=== PATIENT | female | born 1990 | race Caucasian/White ===

== ENCOUNTER 2017-10-20 21:10 | Emergency (ER) | payer BC, SELFPAY ==
[2017-10-20 21:59] LABS: Absolute Monocytes 0.8 K/uL (0.1-1.3); Absolute Neutrophil 6.2 K/uL (1.8-8.0); Basophils % 0.8 % (0-1.3); Eosinophils % 5.4 % (0-4.4); Hematocrit 39.4 % (36.0-45.0); Lymphocytes % 27.8 % (15.3-44.8); MCV 85.5 fL (80-100); MPV 8.9 fL (7.6-11.3); Monocytes % 7.9 % (3.3-12.3)
[2017-10-20 22:08] LABS: Urine Blood NEGATIVE (NEG); Urine Glucose NEGATIVE (NEG); Urine Protein NEGATIVE (NEG); Urine pH 8.5 (5.0-7.0)
[2017-10-20 22:12] LABS: Urine Amorphous Sediment 4+ /HPF (NONE SEEN); Urine Bacteria <20 /HPF (<20); Urine Culture Reflex Order NOT NEEDED; Urine RBC NONE SEEN /HPF (NONE SEEN)
[2017-10-20 22:18] LABS: ALT/SGPT 34 U/L (12-78); AST/SGOT 36 U/L (15-37); Alkaline Phosphatase 75 U/L (45-117); Amylase Level 39 U/L (25-115); BUN Blood Urea Nitrogen 18 mg/dL (7-18); Bicarbonate 25 mmol/L (21-32); Bilirubin Direct 0.1 mg/dL (0-0.2); Bilirubin Total 0.5 mg/dL (0.2-1.0); Glucose Level 92 mg/dL (74-106); Lipase 118 U/L (73-393); Potassium 3.6 mmol/L (3.5-5.1); Sodium Level 139 mmol/L (136-145)
[2017-10-20] MEDS ORDERED: MORPHINE 4 MG/ML SYR ONE (22:29)
[2017-10-20] MEDS ORDERED: KETOROLAC 30 MG/ML INJ ONE (22:29)
[2017-10-20] MEDS ORDERED: ONDANSETRON 4 MG/2 ML VIAL ONE (22:29)
[2017-10-20] MEDS ORDERED: NA CHLORIDE 0.9% 1,000 ML ONE (22:30)
--- NOTE | 2017-10-21 01:19 | ER ---
Nurse's Notes [facility] Name: Belle Boston Age: 27 yrs Sex: Female : 1990 Arrival Date: 10/20/2017 Time: 21:14 Bed 7 Private MD: Diagnosis: Acute abdominal pain;Biliary colic Presentation: 10/20 21:17 Presenting complaint: Patient states: Sudden onset severe epigastric burning and pain aj after eating tonight with nausea. Transition of care: patient was not received from another setting of care. Onset of symptoms was October 20, 2017. Risk Assessment: Do you want to hurt yourself or someone else? Patient reports no desire to harm self or others. Initial Sepsis Screen: Does the patient meet any 2 criteria? No. Patient's initial sepsis screen is negative. Does the patient have a suspected source of infection? No. Patient's initial sepsis screen is negative. Care prior to arrival: None. 21:17 Method Of Arrival: Ambulatory aj 21:17 Acuity: GUTIERREZ 2 aj Triage Assessment: 21:18 General: Appears in no apparent distress. uncomfortable, Behavior is calm, cooperative, aj appropriate for age. Pain: Complains of pain in epigastric area. Neuro: Level of Consciousness is awake, alert, obeys commands, Oriented to person, place, time, situation, Appropriate for age. Respiratory: Airway is patent Respiratory effort is even, unlabored, Respiratory pattern is regular, symmetrical. GI: Abdomen is flat, obese, Reports upper abdominal pain, epigastric pain. Derm: Skin is intact, is healthy with good turgor, Skin is. 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 - Social history:: Smoking status: Patient/guardian denies using tobacco. - Ebola Screening: : Patient negative for fever greater than or equal to 101.5 degrees Fahrenheit, and additional compatible Ebola Virus Disease symptoms Patient denies exposure to infectious person Patient denies travel to an Ebola-affected area in the 21 days before illness onset No symptoms or risks identified at this time. - Family history:: not pertinent. - Hospitalizations: : No recent hospitalization is reported. Screenin:15 Abuse screen: Denies threats or abuse. Nutritional screening: No deficits noted. jb4 Tuberculosis screening: No symptoms or risk factors identified. Fall Risk None identified. Assessment: 21:15 Reassessment: Patient appears in no apparent distress at this time. General: Appears in jb4 no apparent distress. uncomfortable, Behavior is calm, cooperative, appropriate for age. Pain: Complains of pain in abdomen Pain does not radiate. Pain currently is 8 out of 10 on a pain scale. at worst was 10 out of 10 on a pain scale. Quality of pain is described as burning, crampy, Pain began 2-3 days ago. Is intermittent. Neuro: Level of Consciousness is awake, alert, obeys commands, Oriented to person, place, time, situation. Cardiovascular: Heart tones S1 S2 Patient's skin is warm and dry. Respiratory: Airway is patent Respiratory effort is even, unlabored, Respiratory pattern is regular, symmetrical. GI: Abdomen is obese, Bowel sounds present X 4 quads. Abd is soft and non tender in right upper quadrant, right lower quadrant and left lower quadrant Abdomen is tender to palpation in left upper quadrant. : No signs and/or symptoms were reported regarding the genitourinary system. EENT: No signs and/or symptoms were reported regarding the EENT system. Derm: Skin is intact, Skin is pink, warm \T\ dry. Musculoskeletal: Circulation, motion, and sensation intact. 22:15 Reassessment: Patient appears in no apparent distress at this time. Patient and/or jb4 family updated on plan of care and expected duration. Pain level reassessed. Patient is alert, oriented x 3, equal unlabored respirations, skin warm/dry/pink. 23:33 Reassessment: Patient appears in no apparent distress at this time. Patient and/or jb4 family updated on plan of care and expected duration. Pain level reassessed. Patient is alert, oriented x 3, equal unlabored respirations, skin warm/dry/pink. Pt reports feeling better. 10/21 00:40 Reassessment: Patient appears in no apparent distress at this time. Patient and/or jb4 family updated on plan of care and expected duration. Pain level reassessed. Patient is alert, oriented x 3, equal unlabored respirations, skin warm/dry/pink. Vital Signs: 10/20 21:18 BP 147 / 114; Pulse 110; Resp 20; Temp 97.1; Pulse Ox 100% on R/A; Weight 102.51 kg; aj Height 5 ft. 6 in. (167.64 cm); 23:19 BP 108 / 46; Pulse 62; Resp 18 S; Pulse Ox 100% on R/A; Pain 8/10; jb4 10/21 00:39 BP 125 / 66; Pulse 84; Pulse Ox 100% on R/A; ak1 10/20 21:18 Body Mass Index 36.48 (102.51 kg, 167.64 cm) aj ED Course: 10/20 20:20 Patient has correct armband on for positive identification. Placed in gown. Bed in low jb4 position. Call light in reach. Side rails up X 1. Pulse ox on. NIBP on. 21:14 Patient arrived in ED. es 21:18 Triage completed. aj 21:18 Arm band placed on right wrist. Patient placed in an exam room, on a stretcher. aj 21:23 Christiano Styles MD is Attending Physician. wa 21:26 Chris Awad, RN is Primary Nurse. jb4 21:[address] via wheelchair. vr 21:59 CT completed. Patient tolerated procedure well. Patient moved back from CT. nj 21:59 CT Abd/Pelvis - Without Cont In Process Unspecified. EDMS 22:11 Ultrasound completed. Patient tolerated well. sg3 22:11 Inserted saline lock: 20 gauge in right antecubital area, using aseptic technique. oe Blood collected. 22:13 US Abdomen Limited In Process Unspecified. EDMS 10/21 01:16 Chris Oh MD is Referral Physician. dc 01:25 No provider procedures requiring assistance completed. IV discontinued, intact, jb4 bleeding controlled. Administered Medications: 10/20 22:43 Not Given (Patient Refused): Zofran 4 mg IVP once; over 2 minutes jb4 22:44 Not Given (Patient Refused): morphine 4 mg IVP once jb4 22:44 Drug: NS 0.9% 1000 ml Route: IV; Rate: 1000 ml; Site: right antecubital; jb4 23:45 Follow up: Response: No adverse reaction; IV Status: Completed infusion jb4 22:46 Not Given (Med route changed): TORadol 30 mg IVP once jb4 22:46 Drug: TORadol 30 mg Route: IM; Site: left deltoid; jb4 23:15 Follow up: Response: Pain is decreased jb4 Outcome: 10/21 01:18 Discharge ordered by MD. holder 01:25 Discharged to home ambulatory. jb4 01:25 Condition: stable 01:25 Discharge instructions given to patient, Instructed on discharge instructions, follow up and referral plans. medication usage, Demonstrated understanding of instructions, follow-up care, medications, Prescriptions given X 2. 01:40 Patient left the ED. jb4 Signatures: Dispatcher [employer] Nay Barton RN RN aj Salyer, Stephenie Rojo Amber, RN RN akChris Phelan RN RN jb4 Porter Reyes Orlando oe Appiah, William, MD MD wa Godinez, Annie sg3 Corrections: (The following items were deleted from the chart) 10/20 21:20 21:17 Acuity: GUTIERREZ 3 cristóbal ambrocio
--- NOTE | 2017-10-21 01:19 | EDPHYS ---
Physician Documentation [facility] Name: Belle Boston Age: 27 yrs Sex: Female : 1990 Arrival Date: 10/20/2017 Time: 21:14 Bed 7 Private MD: ED Physician Christiano Styles HPI: 10/20 21:45 This 27 yrs old Female presents to ER via Ambulatory with complaints of wa Abdominal Pain. 21:45 The patient presents with abdominal pain in the epigastric area, L flank. Onset: The wa symptoms/episode began/occurred suddenly, just prior to arrival. The symptoms do not radiate. Associated signs and symptoms: Pertinent positives: nausea, Pertinent negatives: diarrhea, dysuria, fever, vomiting. The symptoms are described as achy. Modifying factors: The symptoms are alleviated by nothing, the symptoms are aggravated by nothing. Severity of pain: At its worst the pain was severe just prior to arrival, in the emergency department the pain is unchanged. The patient has not experienced similar symptoms in the past. The patient has not recently seen a physician. 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 - Social history:: Smoking status: Patient/guardian denies using tobacco. - Ebola Screening: : Patient negative for fever greater than or equal to 101.5 degrees Fahrenheit, and additional compatible Ebola Virus Disease symptoms Patient denies exposure to infectious person Patient denies travel to an Ebola-affected area in the 21 days before illness onset No symptoms or risks identified at this time. - Family history:: not pertinent. - Hospitalizations: : No recent hospitalization is reported. ROS: 21:46 Constitutional: Negative for fever, chills, and weight loss, Eyes: Negative for injury, wa pain, redness, and discharge, ENT: Negative for injury, pain, and discharge, Neck: Negative for injury, pain, and swelling, Cardiovascular: Negative for chest pain, palpitations, and edema, Respiratory: Negative for shortness of breath, cough, wheezing, and pleuritic chest pain, : Negative for injury, bleeding, discharge, and swelling, MS/Extremity: Negative for injury and deformity, Skin: Negative for injury, rash, and discoloration, Neuro: Negative for headache, weakness, numbness, tingling, and seizure, Psych: Negative for depression, anxiety, suicide ideation, homicidal ideation, and hallucinations. 21:46 All other systems are negative. Exam: 21:47 Head/Face: Normocephalic, atraumatic. Eyes: Pupils equal round and reactive to light, wa extra-ocular motions intact. Lids and lashes normal. Conjunctiva and sclera are non-icteric and not injected. Cornea within normal limits. Periorbital areas with no swelling, redness, or edema. ENT: Nares patent. No nasal discharge, no septal abnormalities noted. Tympanic membranes are normal and external auditory canals are clear. Oropharynx with no redness, swelling, or masses, exudates, or evidence of obstruction, uvula midline. Mucous membranes moist. Neck: Trachea midline, no thyromegaly or masses palpated, and no cervical lymphadenopathy. Supple, full range of motion without nuchal rigidity, or vertebral point tenderness. No Meningismus. Chest/axilla: Normal chest wall appearance and motion. Nontender with no deformity. No lesions are appreciated. Cardiovascular: Regular rate and rhythm with a normal S1 and S2. No gallops, murmurs, or rubs. Normal PMI, no JVD. No pulse deficits. Respiratory: Lungs have equal breath sounds bilaterally, clear to auscultation and percussion. No rales, rhonchi or wheezes noted. No increased work of breathing, no retractions or nasal flaring. Skin: Warm, dry with normal turgor. Normal color with no rashes, no lesions, and no evidence of cellulitis. MS/ Extremity: Pulses equal, no cyanosis. Neurovascular intact. Full, normal range of motion. Neuro: Awake and alert, GCS 15, oriented to person, place, time, and situation. Cranial nerves II-XII grossly intact. Motor strength 5/5 in all extremities. Sensory grossly intact. Cerebellar exam normal. Normal gait. 21:47 Constitutional: The patient appears alert, anxious, in obvious distress, moderately distressed, due to pain. 21:47 Abdomen/GI: Inspection: abdomen appears normal, Bowel sounds: normal, in all quadrants, Palpation: moderate abdominal tenderness, in the sub-xiphoid area. . 21:47 Back: pain, of the left flank. Vital Signs: 21:18 BP 147 / 114; Pulse 110; Resp 20; Temp 97.1; Pulse Ox 100% on R/A; Weight 102.51 kg; aj Height 5 ft. 6 in. (167.64 cm); 23:19 BP 108 / 46; Pulse 62; Resp 18 S; Pulse Ox 100% on R/A; Pain 8/10; jb4 10/21 00:39 BP 125 / 66; Pulse 84; Pulse Ox 100% on R/A; ak1 10/20 21:18 Body Mass Index 36.48 (102.51 kg, 167.64 cm) aj MDM: 10/20 21:23 Patient medically screened. wa 21:48 Differential diagnosis: bowel obstruction, cholecystitis, Cholelithiasis, gastritis, wa gastroesophageal reflux disease, non-specific abd pain, pancreatitis, Peptic Ulcer Disease, Ureterolithiasis. 23:29 Data reviewed: vital signs, nurses notes, lab test result(s), radiologic studies. Test wa interpretation: by ED physician or midlevel provider: labs noted essentially within nml limits. 23:29 Test interpretation: by ED physician or midlevel provider: RUQ US: gallstones. no wa ductal dilatation or pericholecystic fluid. Response to treatment: the patient's symptoms have markedly improved after treatment. 10/21 01:14 Test interpretation: by ED physician or midlevel provider: CT abd/pelvis: wa cholelithiasis. no acute process. ED course: pain resolved. suspect biliary colic. no acute cholecystitis at this time. will refer to gen surg for surgical eval. 10/20 21:21 Order name: Amylase, Serum; Complete Time: 22:25 10/20 21:21 Order name: Basic Metabolic Panel; Complete Time: 22:26 10/20 21:21 Order name: CBC with Diff; Complete Time: 22:25 10/20 21:21 Order name: Creatinine for Radiology; Complete Time: 22:26 10/20 21:21 Order name: Hepatic Function; Complete Time: 22:25 10/20 21:21 Order name: Lipase; Complete Time: 22:26 10/20 21:21 Order name: US Abdomen Limited 10/20 21:21 Order name: Urine Microscopic Only; Complete Time: 22:25 10/20 21:33 Order name: CT Abd/Pelvis - Without Cont ct 10/20 21:41 Order name: Urine Dipstick--Ancillary (enter results); Complete Time: 22:25 [facility] 10/20 21:41 Order name: Urine --Ancillary (enter results); Complete Time: 22:25 [facility] 10/20 21:21 Order name: IV Saline Lock; Complete Time: 22:45 10/20 21:21 Order name: Labs collected and sent; Complete Time: 22:45 10/20 21:21 Order name: Urine Dipstick-Ancillary (obtain specimen); Complete Time: :45 10/20 21:24 Order name: Urine Test (obtain specimen); Complete Time: :44 ct Administered Medications: 10/20 22:43 Not Given (Patient Refused): Zofran 4 mg IVP once; over 2 minutes jb4 22:44 Not Given (Patient Refused): morphine 4 mg IVP once jb4 22:44 Drug: NS 0.9% 1000 ml Route: IV; Rate: 1000 ml; Site: right antecubital; jb4 23:45 Follow up: Response: No adverse reaction; IV Status: Completed infusion jb4 22:46 Not Given (Med route changed): TORadol 30 mg IVP once jb4 22:46 Drug: TORadol 30 mg Route: IM; Site: left deltoid; jb4 23:15 Follow up: Response: Pain is decreased jb4 Disposition: 10/21/17 01:18 Discharged to Home. Impression: Acute abdominal pain, Biliary colic. - Condition is Stable. - Discharge Instructions: Cholelithiasis, [id number], Abdominal Pain, Adult, [id number]. - Prescriptions for Zofran 4 mg Oral Tablet - take 1 tablet by ORAL route every 12 hours As needed; 6 tablet. Tramadol 50 mg Oral Tablet - take 1 tablet by ORAL route every 8 hours as needed; 12 tablet. - Medication Reconciliation Form, Thank You Letter, Antibiotic Education, Prescription Opioid Use form. - Follow up: Chris Oh MD; When: 1 - 2 days; Reason: Recheck today's complaints. - Problem is new. - Symptoms have improved. - Notes: Please follow up with the general surgeon for further evaluation of your gallbladder. return to ER for worsening. Signatures: Dispatcher [employer] Nay Barton RN RN aj Chris Awad RN RN jb4 Christiano Stylse MD MD wa Corrections: (The following items were deleted from the chart) 10/21 01:40 01:18 10/21/2017 01:18 Discharged to Home. Impression: Acute abdominal pain; Biliary jb4 colic. Condition is Stable. Forms are Medication Reconciliation Form, Thank You Letter, Antibiotic Education, Prescription Opioid Use. Follow up: Chris Oh; When: 1 - 2 days; Reason: Recheck today's complaints. Problem is new. Symptoms have improved. wa
[2017-10-21 01:46] VITALS: TEMP 97.1; O2SAT 100
[2017-10-21 01:49] VITALS: BP 125/66
--- NOTE | 2017-10-21 09:49 | RAD REPORT ---
EXAM DESCRIPTION: US - Abdomen Exam Limited - 10/20/2017 10:13 pm CLINICAL HISTORY: Epigastric pain COMPARISON: None. FINDINGS: A large 2.5 centimeter gallstone is present in the neck of the gallbladder. Additional sma ll gallstones are present. Gallbladder is partially contracted accentuating wall thickness. No perich olecystic fluid. No common duct stone or biliary tree dilatation identified. IMPRESSION: Multi stone cholelithiasis including a large 2.5 centimeter stone fixed at the neck of t he gallbladder. No duct stone or biliary tree dilatation.
--- NOTE | 2017-10-21 09:49 | RAD REPORT ---
EXAM DESCRIPTION: CT - Abdomen Pelvis Wo Contrast - 10/20/2017 9:59 pm CLINICAL HISTORY: Abdominal pain, severe epigastric pain COMPARISON: No prior imaging. TECHNIQUE: Axial [address] imaging of the abdomen and pelvis was performed without IV contrast. No IV contrast was given because of allergy, abnormal renal function, patient refusal or physician re quest. No oral contrast. All CT scans are performed using dose optimization technique as appropriate and may include automated exposure control or mA/KV adjustment according to patient size. FINDINGS: No suspicious findings in the lung bases. The liver, spleen and pancreas show no suspicious findings on non-contrast imaging. Gallbladder is pa rtially contracted. There is a large 2.5 centimeter gallstone near the neck of the gallbladder. No bi liary tree dilatation. No hydronephrosis or suspicious renal mass. No significant adrenal finding. Isodense renal masses an d pyelonephritis cannot be excluded in the absence of IV contrast. The urinary bladder is without sig nificant finding. Uterus and ovaries show no suspicious findings. No dilated bowel loops or bowel wall thickening. No free air, free fluid or inflammatory stranding. N o hernia, mass or bulky lymphadenopathy. A few small subcentimeter mesenteric lymph nodes are presen t. No suspicious bony findings. IMPRESSION: Large 2.5 centimeter gallstone at the neck of the gallbladder. Additional gallstones cou ld be occult. No biliary tree dilatation. No other significant or suspicious findings. Full assessment is limited is the absence of IV contrast.
== END 2017-10-21 01:40 | disposition home or self-care (01) ==
LOC: ER 21:10
DX: K80.50 Calculus of bile duct without cholangitis or cholecystitis without obstruction (principal)
CPT/HCPCS: 36415; 74176; 76705; 80048; 80076; 81003; 81015; 81025; 82150; 83690; 85025; 96360; 96372; 99284; J2405; J7030

== ENCOUNTER 2017-10-21 23:23 | Inpatient (IN) | payer SELFPAY ==
[2017-10-21 23:56] LABS: Specific Gravity 1.025 (1.005-1.030); Urine Appearance CLEAR; Urine Blood NEGATIVE (NEG); Urine Color ORANGE; Urine Glucose NEGATIVE (NEG); Urine Protein NEGATIVE (NEG); Urine Specific Gravity 1.025 (1.005-1.030); Urine pH 7.5 (5.0-7.0)
[2017-10-21 23:58] LABS: Absolute Lymphocytes (CBC) 1.1 K/uL (0.7-4.9); Absolute Monocytes 0.6 K/uL (0.1-1.3); Absolute Neutrophil 5.1 K/uL (1.8-8.0); Basophils % 0.8 % (0-1.3); Eosinophils % 5.3 % (0-4.4); Hematocrit 39.2 % (36.0-45.0); Lymphocytes % 15.5 % (15.3-44.8); MCH 29.4 pg (27.0-35.0); MCV 86.8 fL (80-100); MPV 9.1 fL (7.6-11.3); Monocytes % 7.8 % (3.3-12.3); RBC Red Blood Cell Count 4.51 M/uL (3.86-4.86)
[2017-10-21] MEDS ORDERED: MAGNE/ALUM HYDROXD 30 ML UCUP ONE (23:58)
[2017-10-21] MEDS ORDERED: DICYCLOMINE HCL 10 MG CAP ONE (23:58)
[2017-10-21] MEDS ORDERED: KETOROLAC 30 MG/ML INJ ONE (23:59)
[2017-10-21] MEDS ORDERED: NA CHLORIDE 0.9% 1,000 ML ONE (23:59)
[2017-10-21] MEDS ORDERED: LIDOCAINE VISCOUS 2% SOLN 15 ML UDC ONE (23:59)
[2017-10-22 00:01] LABS: Urine Bilirubin 2+ (NEG)
[2017-10-22 00:05] LABS: Urine Bacteria <20 /HPF (<20); Urine Culture Reflex Order REFLEXED; Urine Mucus LIGHT /HPF (NONE SEEN); Urine RBC NONE SEEN /HPF (NONE SEEN)
[2017-10-22 00:17] LABS: Albumin 3.9 g/dL (3.4-5.0); Alkaline Phosphatase 184 U/L (45-117); Amylase Level 33 U/L (25-115); BUN Blood Urea Nitrogen 9 mg/dL (7-18); Bicarbonate 25 mmol/L (21-32); Bilirubin Total 4.7 mg/dL (0.2-1.0); Glucose Level 98 mg/dL (74-106); Lipase 140 U/L (73-393); Potassium 4.1 mmol/L (3.5-5.1); Protein, Total 7.8 g/dL (6.4-8.2); Sodium Level 139 mmol/L (136-145)
[2017-10-22 00:19] LABS: ALT/SGPT 1349 U/L (12-78); AST/SGOT 853 U/L (15-37)
[2017-10-22] MEDS ORDERED: CEFTRIAXONE/SWI 1gm 1 GM/10 ML SYR ONE (00:36)
--- NOTE | 2017-10-22 01:50 | ER ---
Nurse's Notes [facility] Name: Belle Boston Age: 27 yrs Sex: Female : 1990 Arrival Date: 10/21/2017 Time: 23:25 Bed 28 Private MD: Barney Guzman H Diagnosis: Cholecystitis Presentation: 10/21 23:32 Presenting complaint: Patient states: "I WAS HERE YESTERDAY FOR ABDOMINAL PAIN. I GOT rv DISCHARGED. THE PAIN WENT AWAY BUT THIS MORNING IT STARTED TO HURT AGAIN AND I HAVE BEEN VOMITING FOUR TIMES ALREADY SINCE MORNING.". Transition of care: patient was not received from another setting of care. Onset of symptoms was October 21, 2017 at 08:00. Risk Assessment: Do you want to hurt yourself or someone else? Patient reports no desire to harm self or others. Initial Sepsis Screen: Does the patient meet any 2 criteria? No. Patient's initial sepsis screen is negative. Does the patient have a suspected source of infection? No. Patient's initial sepsis screen is negative. Care prior to arrival: None. 23:32 Method Of Arrival: Ambulatory rv 23:32 Acuity: GUTIERREZ 3 rv Historical: - Allergies: 23:35 No Known Allergies; rv - Home Meds: 23:35 None [Active]; rv - PMHx: 23:35 None; rv - PSHx: 23:35 None; rv - Immunization history:: Adult Immunizations up to date. - Social history:: Smoking status: unknown. - Ebola Screening: : Patient negative for fever greater than or equal to 101.5 degrees Fahrenheit, and additional compatible Ebola Virus Disease symptoms Patient denies exposure to infectious person Patient denies travel to an Ebola-affected area in the 21 days before illness onset. Screenin:37 Abuse screen: Denies threats or abuse. Denies injuries from another. Nutritional rv screening: No deficits noted. Tuberculosis screening: No symptoms or risk factors identified. Fall Risk None identified. Assessment: 23:36 General: Appears in no apparent distress. uncomfortable, Behavior is calm, cooperative. rv Pain: Complains of pain in abdomen. Neuro: Level of Consciousness is awake, alert, obeys commands, Oriented to person, place, time, situation. Cardiovascular: Capillary refill < 3 seconds. Respiratory: Airway is patent. GI: Bowel sounds present X 4 quads. Abd is soft and non tender X 4 quads. : No signs and/or symptoms were reported regarding the genitourinary system. EENT: No signs and/or symptoms were reported regarding the EENT system. Derm: Skin is intact. 10/22 00:15 Reassessment: Patient appears in no apparent distress at this time. Patient and/or rv family updated on plan of care and expected duration. Pain level reassessed. Patient is alert, oriented x 3, equal unlabored respirations, skin warm/dry/pink. 00:34 Reassessment: Patient appears in no apparent distress at this time. Patient and/or rv family updated on plan of care and expected duration. Pain level reassessed. Patient is alert, oriented x 3, equal unlabored respirations, skin warm/dry/pink. 01:30 Reassessment: Patient appears in no apparent distress at this time. Patient and/or rv family updated on plan of care and expected duration. Pain level reassessed. Patient is alert, oriented x 3, equal unlabored respirations, skin warm/dry/pink. Vital Signs: 10/21 23:35 BP 121 / 76; Pulse 97; Temp 98.3(O); Pulse Ox 100% ; Weight 102.06 kg (R); Height 5 ft. rv 6 in. (167.64 cm) (R); 10/22 00:15 BP 120 / 80; Pulse 60; Pulse Ox 99% on R/A; rv 00:34 BP 125 / 101; Pulse 94; Pulse Ox 100% on R/A; rv 01:30 BP 121 / 65; Pulse 63; Pulse Ox 100% on R/A; rv 02:45 BP 111 / 77; Pulse 61; Pulse Ox 100% on R/A; rv 10/21 23:35 Body Mass Index 36.32 (102.06 kg, 167.64 cm) rv ED Course: 10/21 23:25 Patient arrived in ED. es 23:25 Barney Guzman DO is Private Physician. es 23:32 Renan Jesus PA is PHCP. cp 23:32 Rehan Smith MD is Attending Physician. cp 23:34 Triage completed. rv 23:37 Arm band placed on right wrist. rv 23:37 Patient has correct armband on for positive identification. Bed in low position. Call rv light in reach. Side rails up X 1. Pulse ox on. NIBP on. 23:45 Inserted saline lock: 20 gauge in left antecubital area, using aseptic technique. rv 10/22 00:18 Notified Nurse Practitioner and/or Physician Digital Production Operator of a critical lab result(s), ast fc of 853, alt of 1349. 00:28 Urine Culture Sent. rv 01:31 Amylase, Serum Sent. rv 01:31 Basic Metabolic Panel Sent. rv 01:49 Chris Oh MD is Hospitalizing Provider. cp 02:46 No provider procedures requiring assistance completed. Patient admitted, IV remains in rv place. intact. Administered Medications: 00:02 Drug: NS 0.9% 1000 ml Route: IV; Rate: 1 bolus; Site: left antecubital; rv 00:03 Drug: Bentyl 20 mg Route: PO; rv 00:33 Follow up: Response: No adverse reaction rv 00:03 Drug: GI Cocktail without - (Maalox Suspension 30 ml, Lidocaine Liquid 2 % 15 rv ml) Route: PO; 00:33 Follow up: Response: No adverse reaction rv 00:03 Drug: TORadol 30 mg Route: IVP; Site: left antecubital; rv 00:33 Follow up: Response: No adverse reaction rv 00:33 Drug: Rocephin - (cefTRIAXone) 1 grams Route: IVPB; Infused Over: 30 mins; Site: left rv antecubital; 02:03 Follow up: IV Status: Completed infusion rv 02:03 Drug: metroNIDAZOLE 500 mg Volume: 100 ml; Route: IVPB; Infused Over: 30 mins; Site: rv left antecubital; 02:45 Follow up: IV Status: Completed infusion rv Outcome: 01:49 Decision to Hospitalize by Provider. cp 02:46 Admitted to Tele accompanied by [facility], via wheelchair, room 404, with chart, Report rv called to [facility] 02:46 Condition: good 02:46 Instructed on the need for admit. 02:47 Patient left the ED. rv Signatures: Pushpa De Jesus Felicia, RN RN fc Renan Jesus PA PA cp Yony Mason RN RN rv
--- NOTE | 2017-10-22 01:50 | EDPHYS ---
Physician Documentation [facility] Name: Belle Boston Age: 27 yrs Sex: Female : 1990 Arrival Date: 10/21/2017 Time: 23:25 Bed 28 Private MD: Barney Guzman H ED Physician Rehan Smith HPI: 10/21 23:35 This 27 yrs old Female presents to ER via Ambulatory with complaints of cp Abdominal Pain, Vomiting, Urinary Problem. 23:35 The patient presents with abdominal pain in the epigastric area, in the right upper cp quadrant. 23:35 The symptoms radiate to back. cp 23:35 Associated signs and symptoms: Pertinent positives: nausea and vomiting, anorexia, cp Pertinent negatives: chest pain, constipation, diarrhea, dysuria, fever, vomiting blood. The symptoms are described as constant. Severity of pain: in the emergency department the pain is unchanged despite home interventions. The patient has been recently seen at the [facility] Emergency Department, yesterday, for similar complaints labs were performed, an ultrasound was performed, CT scan was performed. Historical: - Allergies: 23:35 No Known Allergies; rv - Home Meds: 23:35 None [Active]; rv - PMHx: 23:35 None; rv - PSHx: 23:35 None; rv - Immunization history:: Adult Immunizations up to date. - Social history:: Smoking status: unknown. - Ebola Screening: : Patient negative for fever greater than or equal to 101.5 degrees Fahrenheit, and additional compatible Ebola Virus Disease symptoms Patient denies exposure to infectious person Patient denies travel to an Ebola-affected area in the 21 days before illness onset. ROS: 23:40 Constitutional: Positive for poor PO intake, Negative for body aches, chills, fever. cp 23:40 Eyes: Negative for discharge, icterus, pain, redness. cp 23:40 ENT: Negative for injury, pain, and discharge. cp 23:40 Cardiovascular: Negative for chest pain, palpitations. 23:40 Respiratory: Negative for cough, shortness of breath, wheezing. 23:40 Abdomen/GI: Positive for abdominal pain, nausea and vomiting, anorexia, Negative for diarrhea, constipation, black/tarry stool, rectal bleeding. 23:40 Back: Positive for radiated pain. 23:40 : Negative for urinary symptoms. 23:40 Skin: Negative for cellulitis, rash. 23:40 Neuro: Negative for altered mental status, headache, weakness. 23:40 All other systems are negative. Exam: 23:47 Constitutional: The patient appears in no acute distress, alert, awake, non-toxic, well cp developed, well nourished, uncomfortable. 23:47 Head/Face: Normocephalic, atraumatic. cp 23:47 Eyes: Periorbital structures: appear normal, Pupils: equal, round, and reactive to light and accomodation, Extraocular movements: intact throughout, Conjunctiva: normal, no exudate, no injection, Sclera: no appreciated abnormality, Lids and lashes: appear normal, bilaterally. 23:47 ENT: External ear(s): are unremarkable, Nose: is normal, Mouth: Lips: moist, Oral mucosa: pink and intact, moist, Posterior pharynx: is normal, airway is patent, no erythema, no exudate. 23:47 Neck: ROM/movement: is normal, is supple, without pain, no range of motions limitations, no nuchal rigidity. 23:47 Chest/axilla: Inspection: normal, Palpation: is normal, no crepitus, no tenderness. 23:47 Cardiovascular: Rate: normal, Rhythm: regular. 23:47 Respiratory: the patient does not display signs of respiratory distress, Respirations: normal, no use of accessory muscles, no retractions, no splinting, no tachypnea, labored breathing, is not present, Breath sounds: are clear throughout, no decreased breath sounds, no stridor, no wheezing. 23:47 Abdomen/GI: Inspection: abdomen appears normal, Bowel sounds: active, all quadrants, Palpation: soft, in all quadrants, severe abdominal tenderness, in the epigastric area and right upper quadrant, voluntary guarding, is elicited in the epigastric area and right upper quadrant. 23:47 Back: pain, that is moderate, ROM is normal, Straight leg raises: of both lower extremities does not illicit pain. 23:47 Skin: cellulitis, is not appreciated, no rash present. 23:47 Neuro: Orientation: to person, place \T\ time. Mentation: lucid, able to follow commands, Cerebellar function: is grossly normal, Motor: moves all fours, strength is normal, Sensation: is normal. Vital Signs: 23:35 BP 121 / 76; Pulse 97; Temp 98.3(O); Pulse Ox 100% ; Weight 102.06 kg (R); Height 5 ft. rv 6 in. (167.64 cm) (R); 10/22 00:15 BP 120 / 80; Pulse 60; Pulse Ox 99% on R/A; rv 00:34 BP 125 / 101; Pulse 94; Pulse Ox 100% on R/A; rv 01:30 BP 121 / 65; Pulse 63; Pulse Ox 100% on R/A; rv 02:45 BP 111 / 77; Pulse 61; Pulse Ox 100% on R/A; rv 10/21 23:35 Body Mass Index 36.32 (102.06 kg, 167.64 cm) rv MDM: 10/21 23:34 Patient medically screened. cp 10/22 00:00 Differential diagnosis: cholecystitis, Cholelithiasis, gastritis, pancreatitis, Peptic cp Ulcer Disease, Perf. Duodenal Ulcer, Perf. Gastric Ulcer, Ureterolithiasis, urinary tract infection. 01:45 Data reviewed: vital signs, nurses notes, old medical records, lab test result(s), and cp as a result, I will admit patient. 01:45 Counseling: I had a detailed discussion with the patient and/or guardian regarding: the cp historical points, exam findings, and any diagnostic results supporting the discharge/admit diagnosis, lab results, the need for further work-up and treatment in the hospital. Response to treatment: the patient's symptoms have markedly improved after treatment. 01:50 Physician consultation: Chris Oh MD was contacted at 01:50, regarding admission, cp to the medical/surgical unit. patient's condition. 10/21 23:33 Order name: Amylase, Serum cp 10/21 23:33 Order name: Basic Metabolic Panel cp 10/21 23:33 Order name: CBC with Diff; Complete Time: 00:20 cp 10/22 01:49 Interpretation: EOSINOPHIL % 5.3; WBC 7.2; Reviewed. cp 10/21 23:33 Order name: Creatinine for Radiology; Complete Time: 00:20 cp 10/21 23:33 Order name: Hepatic Function; Complete Time: 00:20 cp 10/22 00:21 Interpretation: Reviewed. cp 10/21 23:33 Order name: Lipase; Complete Time: 00:20 cp 10/21 23:33 Order name: Amylase Level; Complete Time: 00:20 EDMS 10/21 23:33 Order name: Basic Metabolic Panel; Complete Time: 00:20 EDMS 10/21 23:50 Order name: Test, Urine; Complete Time: 00:20 EDMS 10/21 23:55 Order name: Urinalysis W/Microscopic; Complete Time: 00:20 EDMS 10/22 01:47 Interpretation: Normal except: UBILI 2+; UKET 3+; UPH 7.5; UESTR 1+. cp 10/22 00:09 Order name: Urine Culture EDMS 10/22 01:56 Order name: Basic Metabolic Panel EDMS 10/22 01:56 Order name: Basic Metabolic Panel EDMS 10/21 23:33 Order name: Urine Test (obtain specimen); Complete Time: 23:49 cp 10/21 23:33 Order name: IV Saline Lock; Complete Time: 23:49 cp 10/21 23:33 Order name: Labs collected and sent; Complete Time: 23:49 cp 10/22 01:56 Order name: NPO EDMS 10/22 01:56 Order name: CBC with Automated Diff EDMS 10/22 01:56 Order name: CBC with Automated Diff EDMS 10/22 01:56 Order name: Lipase EDMS 10/22 01:56 Order name: Lipase EDMS 10/22 01:56 Order name: Liver (Hepatic) Function EDMS 10/22 01:56 Order name: Liver (Hepatic) Function EDMS 10/21 23:33 Order name: Urine Dipstick-Ancillary (obtain specimen); Complete Time: 23:49 cp 10/22 00:22 Order name: NPO; Complete Time: 00:28 cp Administered Medications: 00:02 Drug: NS 0.9% 1000 ml Route: IV; Rate: 1 bolus; Site: left antecubital; rv 00:03 Drug: Bentyl 20 mg Route: PO; rv 00:33 Follow up: Response: No adverse reaction rv 00:03 Drug: GI Cocktail without - (Maalox Suspension 30 ml, Lidocaine Liquid 2 % 15 rv ml) Route: PO; 00:33 Follow up: Response: No adverse reaction rv 00:03 Drug: TORadol 30 mg Route: IVP; Site: left antecubital; rv 00:33 Follow up: Response: No adverse reaction rv 00:33 Drug: Rocephin - (cefTRIAXone) 1 grams Route: IVPB; Infused Over: 30 mins; Site: left rv antecubital; 02:03 Follow up: IV Status: Completed infusion rv 02:03 Drug: metroNIDAZOLE 500 mg Volume: 100 ml; Route: IVPB; Infused Over: 30 mins; Site: rv left antecubital; 02:45 Follow up: IV Status: Completed infusion rv Disposition: 10/22/17 01:49 Hospitalization ordered by Chris Oh for Observation. Preliminary diagnosis is Cholecystitis. - Bed requested for Telemetry/MedSurg (observation). - Status is Observation. rv - Condition is Stable. - Problem is an ongoing problem. - Symptoms have improved. UTI on Admission? No Addendum: 10/28/2017 12:06 Co-signature as Attending Physician, Rehan Smith MD Available for consultation at p s1 all times. . Signatures: Dispatcher [employer] [facility] Suzan Magdaleno RN RN Renan Odell PA PA cp Singer, Phillip, MD MD [facility] Yony Mason RN RN rv Corrections: (The following items were deleted from the chart) 10/21 23:55 23:33 UA MICROSCOPIC+U.LAB.BRZ ordered. [facility] 10/22 01:49 01:48 EOSINOPHIL % 5.3; Reviewed. cp cp 02:09 01:49 Hospitalization Ordered by Chris Oh MD for Observation. Preliminary kl diagnosis is Cholecystitis. Bed requested for Telemetry/MedSurg (observation). Status is Observation. Condition is Stable. Problem is an ongoing problem. Symptoms have improved. UTI on Admission? No. cp 02:47 02:09 10/22/2017 01:49 Hospitalization Ordered by Chris Oh MD for Observation. rv Preliminary diagnosis is Cholecystitis. Bed requested for Telemetry/MedSurg (observation). Status is Observation. Condition is Stable. Problem is an ongoing problem. Symptoms have improved. UTI on Admission? No. kl
[2017-10-22] MEDS ORDERED: MORPHINE 4 MG/ML SYR IV PRN (01:52)
[2017-10-22] MEDS: METRONIDAZOLE 500mg IVPB 500 MG/100 ML BAG IV SCH ×3 (03:00→17:14)
[2017-10-22 03:21] VITALS: BMI 36.3
[2017-10-22] MEDS: D5 0.45 NS 1,000 ML IV SCH ×4 (03:36→21:03)
[2017-10-22] MEDS ORDERED: PHENOL 1.4% ORAL SPRAY 180ML MM PRN (08:58)
[2017-10-22] MEDS ORDERED: CEFTRIAXONE 1 GM/NS 50 ML 1 GM/50 ML BAG IV SCH (09:00)
[2017-10-22] MEDS: CEFTRIAXONE/SWI 1gm 1 GM/10 ML SYR IVP SCH ×2 (10:08→21:04)
[2017-10-22] MEDS: ONDANSETRON 4 MG/2 ML VIAL IV PRN ×2 (12:07→17:15)
[2017-10-22] MEDS ORDERED: Ringers Lactate 1,000 ML IV ONE ×2 (14:04→16:01)
[2017-10-22] MEDS ORDERED: FENTANYL CITR 100 MCG/2 ML ONE ×2 (14:04→14:50)
[2017-10-22] MEDS ORDERED: PROPOFOL 200 MG/20 ML VIAL IV ONE (14:04)
[2017-10-22] MEDS ORDERED: ROCURONIUM 50 MG/5 ML VIAL IV ONE (14:04)
[2017-10-22] MEDS ORDERED: BUPIVACAINE 0.5% PF 10 ML VIAL ONE (14:08)
[2017-10-22] MEDS ORDERED: ONDANSETRON HCL 40 MG/20 ML VIAL ONE ×2 (14:21→14:25)
[2017-10-22] MEDS ORDERED: KETOROLAC 30 MG/ML INJ ONE (14:42)
[2017-10-22] MEDS ORDERED: DEXAMETHASONE 4 MG/ML VIAL ONE (14:43)
[2017-10-22] MEDS ORDERED: GLYCOPYRROLATE 0.2 MG/ML SYR ONE (15:28)
[2017-10-22] MEDS ORDERED: GLUCAGON 1 MG/VIAL ONE (15:29)
--- NOTE | 2017-10-22 15:41 | P.HP ---
Date of Service: 10/22/17 PC: This patient presents emergency room with severe right upper quadrant abdominal pain for diagnosis and treatment. HPC: Patient may here on a prior day. Presented with severe right upper quadrant abdominal pain. She was evaluated in the emergency room and after received some pain medication was discharged with a diagnosis of cholelithiasis , biliary colic. Yesterday her pain return any evening time she could no longer [place]. She described it as severe, centrally located, radiating into her back. Associated with nausea and vomiting. PMH: 3 para 3 PSHx: Negative SOC: No known allergies SYS REVIEW: No cough, wheeze, shortness of breath. No chest pain or palpitations. Denies any urinary complaints. Otherwise a healthy young female. O/E awake alert comfortable at the moment vital signs are stable HEENT: Not clinically jaundiced Chest: Chest movement equal bilaterally ABD: Mild right upper quadrant tenderness, no guarding or rebound LOCO: Intact DATA: Elevated liver enzymes, has documented stones on ultrasound IMPRESSION:, cholecystitis with cholelithiasis, possible choledocholithiasis PLAN: Will take to the operating room for laparoscopic cholecystectomy with intraoperative cholangiogram. The risks of this procedure have been discussed. The possibility of bleeding, infection, injury to bile ducts blood vessels and intestines has been described. The possibility of having a stone in her common bile duct was explained. The need for further surgeries and procedures to be findings to be treated were explained. The possibility of transfer to another facility were outlined. She and her understand. They want to proceed.
[2017-10-22] MEDS ORDERED: NEOSTIGMINE 1 MG/ML -5 ML SYRINGE ONE (15:47)
--- NOTE | 2017-10-22 15:47 | P.OP ---
Preoperative diagnosis: Cholecystitis with cholelithiasis, possible choledocholithiasis Postoperative diagnosis: The same with spasm of the sphincter of Baltazar, possible stone Primary procedure: Laparoscopic cholecystectomy Secondary procedure: Cholangiogram Other procedure(s): Laparoscopic Exploration of common bile duct Anesthesia: General Estimated blood loss: Less 10 cc Specimen: 1 gallbladder and contents Operative Technique: The patient brought the operating room and placed supine on the table the induction of adequate general endotracheal anesthesia, the area of the abdomen was prepped with a DuraPrep solution, and she was draped in usual aseptic manner. A subumbilical incision was made. This brought down through the skin and subcutaneous tissue. The Visiport was used to enter the peritoneal cavity and created pneumoperitoneum to approximately 12 mm of mercury. Under direct vision a 5 mm trocar was placed in the upper midline, and 2 other 5 mm trocars on the right lateral side of the abdomen. The patient was now placed in reverse Trendelenburg, the table was rolled to the left. We could visualize a distended gallbladder. We were able placing a grasper on the fundus. Gentle dissection brought us down towards the Parviz's pouch. We could see that this area was quite edematous. The peritoneal attachments were taken down. We were able to expose the cystic duct and artery and obtained the critical view. A clip was now placed between the gallbladder and the cystic duct. An opening was made into the cystic duct through which we obtained an intraoperative cholangiogram. The cholangiogram demonstrated the extra padding biliary tree. We could see the common hepatic duct, and the common bile duct. At the distal end of the common bile duct. There was a cut off with no flow contrast into the duodenum. This cut efferent however was not the typical rounded area indicative of stone. It may be more consistent with a possible edema from passing a stone. We made efforts to pass a urology basket down through this. However we were unable to successfully reached the distal end of the common bile duct. This portion of the procedure was discontinued. Once again we placed a cholangiocatheter it was able to be passed all way down to the distal end of the common bile duct were able to inject contrast this area however still no contrast passed into the duodenum. At this point the catheter was removed. Clips were now placed on the distal portion of the cystic duct. The cystic duct was now fully transected ensured we had it secured well. 2 more clips were placed on the cystic artery which was then divided. The gallbladder was now dissected free from the liver bed, placed into an Endo-Catch, and brought out through the umbilical trocar site. The abdomen was inspected to ensure adequate hemostasis. The irrigating fluid was aspirated from the abdominal cavity. The anterior abdominal wall was EUSEBIO blocked with 0.25% Marcaine. The umbilical trocar site was approximated using 2 absorbable sutures placed using the Endo Close. At this point the trocars were removed, the pneumoperitoneum collapse, and the suture tied. Domenico were applied to the skin. At the end of the procedure she was stable when sent to the recovery room. Needle sponge instrument count were correct. The specimen was opened. We found a large elongated stone. The surrounding bile was remarkably clean, with minimal detritus seen. I will discuss this case with Radiology, the patient, and GI to see whether the patient warrants an ERCP, MRCP, or should be followed up emergently Complications: None Transferred to: Recovery Room Condition: Good
[2017-10-22] MEDS ORDERED: DIAZEPAM 5 MG TABLET PO ONE (21:19)
[2017-10-22] MEDS: MORPHINE 4 MG/ML SYR IV PRN (23:20)
[2017-10-23] MEDS: METRONIDAZOLE 500mg IVPB 500 MG/100 ML BAG IV SCH ×4 (00:26→17:58)
[2017-10-23 03:56] LABS: Absolute Lymphocytes (CBC) 0.7 K/uL (0.7-4.9); Absolute Monocytes 0.5 K/uL (0.1-1.3); Absolute Neutrophil 7.6 K/uL (1.8-8.0); Basophils % 0.3 % (0-1.3); Eosinophils % 0.2 % (0-4.4); Lymphocytes % 7.7 % (15.3-44.8); MCH 29.4 pg (27.0-35.0); MCV 86.4 fL (80-100); MPV 9.7 fL (7.6-11.3); Monocytes % 5.4 % (3.3-12.3); RBC Red Blood Cell Count 4.06 M/uL (3.86-4.86)
[2017-10-23 04:49] LABS: Albumin 3.1 g/dL (3.4-5.0); Alkaline Phosphatase 166 U/L (45-117); BUN Blood Urea Nitrogen 4 mg/dL (7-18); Bicarbonate 26 mmol/L (21-32); Bilirubin Direct 2.7 mg/dL (0-0.2); Bilirubin Total 3.2 mg/dL (0.2-1.0); Glucose Level 174 mg/dL (74-106); Lipase 88 U/L (73-393); Potassium 4.1 mmol/L (3.5-5.1); Protein, Total 6.6 g/dL (6.4-8.2); Sodium Level 140 mmol/L (136-145)
[2017-10-23 04:58] LABS: Blood Morphology Comment NOT SEEN (NOT SEEN); Platelet Estimate ADEQ
[2017-10-23 04:59] LABS: ALT/SGPT 1007 U/L (12-78); AST/SGOT 400 U/L (15-37)
[2017-10-23] MEDS: MORPHINE 4 MG/ML SYR IV PRN ×2 (07:40→12:29)
--- NOTE | 2017-10-23 09:08 | RAD REPORT ---
EXAM DESCRIPTION: MRI - Cholangiogram - 10/23/2017 8:41 am CLINICAL HISTORY: Epigastric pain, cholecystectomy prior day COMPARISON: Ultrasound and CT imaging October 20 TECHNIQUE: MRCP imaging was performed. Axial and coronal heavily T2 weighted sequences were obtained . Coronal MRCP images were obtained as static and coronal reformatted images. Horizontal and vertical axes 3D rotational imaging generated using maximum intensity projection protocol. FINDINGS: Gallbladder fossa artifact is seen from cholecystectomy clips. No intrahepatic biliary jose e dilatation. Common bile duct is normal diameter at 6 mm. No suspicion for bile leak. No stricture o r mass identifiable. No intraluminal filling defect confirmed to a indicate a retained duct stone. IMPRESSION: No biliary tree abnormal dilatation. No retained duct stone confirmed.
[2017-10-23] MEDS: CEFTRIAXONE/SWI 1gm 1 GM/10 ML SYR IVP SCH ×2 (09:29→21:30)
[2017-10-23] MEDS: D5 0.45 NS 1,000 ML IV SCH ×3 (09:29→21:30)
[2017-10-23] MEDS: ONDANSETRON 4 MG/2 ML VIAL IV PRN (12:29)
--- NOTE | 2017-10-23 15:20 | P.DS ---
Admission Date: 10/23/17 Discharge Date: 10/23/17 Disposition: ROUTINE DISCHARGE Discharge Condition: GOOD Reason for Admission: Right upper quadrant abdominal pain Procedures: Laparoscopic cholecystectomy with intraoperative cholangiogram, MRCP Brief History of Present Illness: Patient presents emergency room with severe right upper quadrant abdominal pain. She had been discharged home and told to return should the pain recur. The pain did recur and she presented as instructed. Hospital Course: This patient, who in in previously seen emergency room, came back because of persistent right upper quadrant abdominal pain for diagnosis and treatment. She had had a previous CT scan and ultrasound which demonstrated some gallstones. She underwent a laparoscopic cholecystectomy with a intraoperative cholangiogram. The intraoperative cholangiogram demonstrated what appeared to be essentially a normal extrahepatic biliary tree, but no contrast would flow into the duodenum. In view of the fact that she had elevated her liver enzymes there was a question whether not she had a retained stand it would not visualize. She was sent this morning for an MRCP. Today she is up ambulating, tolerating a diet, and her pain appears to be controlled on oral pain medication. She will be discharged to follow up with me in my office next Monday. Should she have any questions or problems once again she has been instructed to return to the emergency room, or contact me. Vital Signs/Physical Exam: Temp Pulse Resp BP Pulse Ox 97.6 F 59 18 119/62 93 10/23/17 12:00 10/23/17 12:00 10/23/17 12:00 10/23/17 12:00 10/23/17 12:00 Laboratory Data at Discharge: WBC 8.8 K/uL (4.3-10.9) D 10/23/17 03:37 Hgb 11.9 g/dL (12.0-15.0) L 10/23/17 03:37 Hct 35.0 % (36.0-45.0) L 10/23/17 03:37 Plt Count 207 K/uL (152-406) D 10/23/17 03:37 Sodium 140 mmol/L (136-145) 10/23/17 03:37 Potassium 4.1 mmol/L (3.5-5.1) 10/23/17 03:37 BUN 4 mg/dL (7-18) L 10/23/17 03:37 Creatinine 0.60 mg/dL (0.55-1.3) 10/23/17 03:37 Glucose 174 mg/dL (74-106) H 10/23/17 03:37 Total Bilirubin 3.2 mg/dL (0.2-1.0) H 10/23/17 03:37 AST 400 U/L (15-37) H* D 10/23/17 03:37 ALT 1007 U/L (12-78) H* D 10/23/17 03:37 Alkaline Phosphatase 166 U/L (45-117) H 10/23/17 03:37 Amylase 33 U/L (25-115) 10/21/17 23:45 Lipase 88 U/L (73-393) 10/23/17 03:37 Home Medications: NK [No Home Meds] 10/22/17
[2017-10-23] MEDS: HYDROCODONE/APAP 5/325 MG TAB PO PRN (17:59)
[2017-10-24] MEDS: METRONIDAZOLE 500mg IVPB 500 MG/100 ML BAG IV SCH ×3 (00:17→14:36)
[2017-10-24] MEDS: ONDANSETRON 4 MG/2 ML VIAL IV PRN (01:09)
[2017-10-24] MEDS: HYDROCODONE/APAP 5/325 MG TAB PO PRN ×2 (01:09→11:38)
[2017-10-24] MEDS: D5 0.45 NS 1,000 ML IV SCH ×2 (02:00→10:00)
[2017-10-24] MEDS: CALCIUM CARBONATE CHEW 500MG TAB PO SCH ×3 (08:09→15:38)
[2017-10-24] MEDS: CEFTRIAXONE/SWI 1gm 1 GM/10 ML SYR IVP SCH (09:25)
[2017-10-24 11:06] VITALS: O2SAT 98
[2017-10-24 13:14] LABS: Absolute Lymphocytes (CBC) 0.9 K/uL (0.7-4.9); Absolute Monocytes 0.6 K/uL (0.1-1.3); Absolute Neutrophil 5.2 K/uL (1.8-8.0); Basophils % 0.6 % (0-1.3); Eosinophils % 2.9 % (0-4.4); Hematocrit 33.1 % (36.0-45.0); Lymphocytes % 13.6 % (15.3-44.8); MCH 29.9 pg (27.0-35.0); MCV 87.3 fL (80-100); MPV 8.9 fL (7.6-11.3); Monocytes % 7.9 % (3.3-12.3); RBC Red Blood Cell Count 3.79 M/uL (3.86-4.86)
[2017-10-24 13:39] LABS: AST/SGOT 200 U/L (15-37); Albumin 3.1 g/dL (3.4-5.0); Alkaline Phosphatase 194 U/L (45-117); BUN Blood Urea Nitrogen 3 mg/dL (7-18); Bicarbonate 27 mmol/L (21-32); Bilirubin Direct 2.4 mg/dL (0-0.2); Bilirubin Total 2.9 mg/dL (0.2-1.0); Glucose Level 113 mg/dL (74-106); Magnesium 2.1 mg/dL (1.8-2.4); Phosphorus 2.5 mg/dL (2.5-4.9); Sodium Level 142 mmol/L (136-145)
[2017-10-24 13:44] LABS: ALT/SGPT 858 U/L (12-78)
--- NOTE | 2017-10-24 15:42 | P.PN ---
Date of Service: 10/24/17 S: Patient looks well today and, and has been tolerating some liquids. States she still has pain in her back. O: Vital signs are stable, labs within normal limits liver enzymes returning to normal. A: Surgically stable P: Patient is much improved since her original surgery. Still complaining of some severe backache. Was uncomfortable going home yesterday and is still medicine to do so now. I have started her on some Maalox, and sometimes. Her pain appears to be controlled. I have given her the option of going home later on this evening after she has something to eat under has been instrument year, or she can spend the night with this and will discharge in the a.m..
[2017-10-24 18:34] VITALS: BP 125/62; TEMP 97.4
--- NOTE | 2017-10-27 16:01 | RAD REPORT ---
EXAM DESCRIPTION: RAD - Cholangiogram Oper-Xray Or - 10/25/2017 11:01 am FINDINGS: Approximately 17 images were submitted from an intraoperative cholangiogram. Fluoro time w as 1.1 minutes. Images of the biliary tree show no stricture or mass. Air bubble was identifiable on 1 image. There a re small filling defects present in the common hepatic duct. These are potentially air bubbles or sma ll stones. Correlation is needed with findings during real-time evaluation.
== END 2017-10-24 18:51 | disposition home or self-care (01) | DRG 419 ==
LOC: ER 23:23 → ERHOLD 10-22 01:49 → 4TH 10-22 02:16 → OBSVTOIN 10-23 08:43
PROVIDERS: ADMIT Surgery; ATTEND Surgery
PROC: BF00YZZ Plain Radiography of Bile Ducts using Other Contrast (ICD-10-PCS; 2017-10-22)
PROC: 0FT44ZZ Resection of Gallbladder, Percutaneous Endoscopic Approach (ICD-10-PCS; principal; 2017-10-22 14:00)
DX: K80.10 Calculus of gallbladder with chronic cholecystitis without obstruction (principal)
CPT/HCPCS: 36415; 74181; 74300; 80048; 80053; 80076; 81001; 81025; 82150; 82248; 83690; 83735; 84100; 85025; 87086; 87088; 88304; 96365; 96367; 96375; 99285; G0378; J0696; J1610; J2405; J2710; J3010; J7030; Q9967

== ENCOUNTER 2018-02-18 12:31 | Emergency (ER) | payer SELFPAY ==
[2018-02-18 13:43] LABS: Urine Blood 2+ (NEG); Urine Glucose NEGATIVE (NEG); Urine Protein NEGATIVE (NEG); Urine pH 7.5 (5.0-7.0)
[2018-02-18 14:24] LABS: Absolute Lymphocytes (CBC) 1.7 K/uL (0.7-4.9); Absolute Monocytes 0.7 K/uL (0.1-1.3); Absolute Neutrophil 6.2 K/uL (1.8-8.0); Basophils % 0.6 % (0-1.3); Eosinophils % 3.2 % (0-4.4); Hematocrit 38.6 % (36.0-45.0); MPV 8.3 fL (7.6-11.3); Monocytes % 7.9 % (3.3-12.3); RBC Red Blood Cell Count 4.41 M/uL (3.86-4.86)
[2018-02-18 14:44] LABS: ALT/SGPT 20 U/L (12-78); AST/SGOT 11 U/L (15-37); Albumin 3.7 g/dL (3.4-5.0); Alkaline Phosphatase 67 U/L (45-117); BUN Blood Urea Nitrogen 9 mg/dL (7-18); Bicarbonate 24 mmol/L (21-32); Bilirubin Total 0.4 mg/dL (0.2-1.0); Glucose Level 80 mg/dL (74-106); Potassium 4.1 mmol/L (3.5-5.1); Protein, Total 7.2 g/dL (6.4-8.2); Sodium Level 142 mmol/L (136-145)
[2018-02-18] MEDS ORDERED: NA CHLORIDE 0.9% 1,000 ML ONE (14:45)
--- NOTE | 2018-02-18 15:23 | RAD REPORT ---
EXAM DESCRIPTION: CTAbdomen Pelvis W Contrast - 02/18/2018 3:06 pm CLINICAL HISTORY: Abdominal pain. RLQ PAIN COMPARISON: <Comparisons> TECHNIQUE: Biphasic CT imaging of the abdomen and pelvis was performed with 100 ml non-ionic IV cont rast. All CT scans are performed using dose optimization technique as appropriate and may include automated exposure control or mA/KV adjustment according to patient size. FINDINGS: The lung bases are clear. The liver, spleen, pancreas, adrenal glands and kidneys are within normal limits. No bowel obstruction, free air, intra-abdominal free fluid or abscess. Small fat containing umbilical hernia. The appendix is normal. No evidence of significant lymphadenopathy. No suspicious bony findings. Trace pelvic free fluid, likely within physiologic limits. IMPRESSION: No acute intra-abdominal or pelvic finding.
--- NOTE | 2018-02-18 16:07 | EDPHYS ---
Physician Documentation [facility] Name: Belle Boston Age: 27 yrs Sex: Female : 1990 Arrival Date: 02/18/2018 Time: 12:40 Bed 15 Private MD: Barney Guzman H ED Physician Renan Mendoza HPI: 02/18 13:00 This 27 yrs old Female presents to ER via Ambulatory with complaints of Back pm1 Pain, Vaginal Bleeding. 13:00 The patient presents with pain that is acute, with no known mechanism of injury. The pm1 symptoms are located in the low back. Onset: The symptoms/episode began/occurred 2 day(s) ago. The pain radiates to the right lower quadrant. Associated signs and symptoms: Pertinent positives: vaginal bleeding, Pertinent negatives: chest pain, dysuria, fever, nausea, vomiting. Modifying factors: The patient symptoms are alleviated by nothing, the patient symptoms are aggravated by nothing. The patient has not experienced similar symptoms in the past. The patient has not recently seen a physician. 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 - Social history:: Smoking status: Patient/guardian denies using tobacco. - Ebola Screening: : Patient negative for fever greater than or equal to 101.5 degrees Fahrenheit, and additional compatible Ebola Virus Disease symptoms Patient denies exposure to infectious person Patient denies travel to an Ebola-affected area in the 21 days before illness onset No symptoms or risks identified at this time. ROS: 13:00 Constitutional: Negative for fever, chills, and weight loss, Eyes: Negative for injury, pm1 pain, redness, and discharge, ENT: Negative for injury, pain, and discharge, Neck: Negative for injury, pain, and swelling, Cardiovascular: Negative for chest pain, palpitations, and edema, Respiratory: Negative for shortness of breath, cough, wheezing, and pleuritic chest pain. 13:00 MS/Extremity: Negative for injury and deformity, Skin: Negative for injury, rash, and discoloration, Neuro: Negative for headache, weakness, numbness, tingling, and seizure. 13:00 Abdomen/GI: Positive for abdominal pain, of the right lower quadrant, Negative for nausea, vomiting, and diarrhea. 13:00 Back: Positive for of the left low back and right low back, pain. 13:00 : Positive for vaginal bleeding, Negative for urinary symptoms, vaginal discharge, pm1 vaginal itching. Exam: 14:00 Constitutional: This is a well developed, well nourished patient who is awake, alert, pm1 and in no acute distress. Head/Face: Normocephalic, atraumatic. Eyes: Pupils equal round and reactive to light, extra-ocular motions intact. Lids and lashes normal. Conjunctiva and sclera are non-icteric and not injected. Cornea within normal limits. Periorbital areas with no swelling, redness, or edema. ENT: Nares patent. No nasal discharge, no septal abnormalities noted. Tympanic membranes are normal and external auditory canals are clear. Oropharynx with no redness, swelling, or masses, exudates, or evidence of obstruction, uvula midline. Mucous membranes moist. Neck: Trachea midline, no thyromegaly or masses palpated, and no cervical lymphadenopathy. Supple, full range of motion without nuchal rigidity, or vertebral point tenderness. No Meningismus. Chest/axilla: Normal chest wall appearance and motion. Nontender with no deformity. No lesions are appreciated. Cardiovascular: Regular rate and rhythm with a normal S1 and S2. No gallops, murmurs, or rubs. Normal PMI, no JVD. No pulse deficits. Respiratory: Lungs have equal breath sounds bilaterally, clear to auscultation and percussion. No rales, rhonchi or wheezes noted. No increased work of breathing, no retractions or nasal flaring. 14:00 Skin: Warm, dry with normal turgor. Normal color with no rashes, no lesions, and no evidence of cellulitis. MS/ Extremity: Pulses equal, no cyanosis. Neurovascular intact. Full, normal range of motion. 14:00 Abdomen/GI: Inspection: abdomen appears normal, Bowel sounds: normal, Palpation: soft, mild abdominal tenderness, in the suprapubic area, mass, is not appreciated, rebound tenderness, is not appreciated. 14:00 Back: pain, that is mild, of the left low back and right low back, normal spinal alignment noted. 14:00 Neuro: Orientation: is normal, Mentation: is normal, Motor: is normal, Sensation: is normal, no obvious gross deficits, Gait: is steady, at a normal pace, without difficulty. Vital Signs: 12:47 BP 148 / 77; Pulse 93; Resp 16; Temp 97.4; Pulse Ox 100% on R/A; Weight 96.62 kg; iw Height 5 ft. 5 in. (165.10 cm); Pain 7/10; 15:19 BP 122 / 87; Pulse 73; Resp 18; Pulse Ox 100% on R/A; tl3 16:20 BP 110 / 64; Pulse 79; Resp 18; Pulse Ox 100% on R/A; tl3 12:47 Body Mass Index 35.44 (96.62 kg, 165.10 cm) iw MDM: 12:56 Patient medically screened. reagan 15:57 Data reviewed: vital signs. Data interpreted: Pulse oximetry: on room air is 100 %. pm1 Interpretation: normal. Counseling: I had a detailed discussion with the patient and/or guardian regarding: the historical points, exam findings, and any diagnostic results supporting the discharge/admit diagnosis, lab results, radiology results, the need for outpatient follow up, to return to the emergency department if symptoms worsen or persist or if there are any questions or concerns that arise at home. 02/18 13:08 Order name: Urine Dipstick--Ancillary (enter results); Complete Time: 13:43 ag 02/18 13:08 Order name: Urine --Ancillary (enter results); Complete Time: 13:43 ag 02/18 13:54 Order name: CBC with Diff; Complete Time: 14:49 pm1 02/18 13:54 Order name: CMP; Complete Time: 14:49 pm1 02/18 14:34 Order name: CT Abd/Pelvis - W/Contrast; Complete Time: 15:31 pm1 02/18 12:49 Order name: Urine Dipstick-Ancillary (obtain specimen); Complete Time: 13:05 iw 02/18 12:49 Order name: Urine Test (obtain specimen); Complete Time: 13:05 iw 02/18 13:54 Order name: IV Saline Lock; Complete Time: 14:27 pm1 Administered Medications: 14:34 Drug: NS 0.9% 1000 ml Route: IV; Rate: 1000 ml; Site: right antecubital; 16:17 Follow up: IV Status: Completed infusion; IV Intake: 700ml tl3 16:17 Drug: TORadol 30 mg Route: IVP; Infused Over: 2 mins; Site: right antecubital; tl3 16:17 Follow up: Response: Medication administered at discharge. tl3 Disposition: 02/19 07:16 Co-signature as Attending Physician, Renan Mendoza MD I agree with the assessment and reagan plan of care. Disposition: 02/18/18 16:07 Discharged to Home. Impression: Other abnormal uterine and vaginal bleeding, Unspecified abdominal pain. - Condition is Stable. - Discharge Instructions: Abdominal Pain, Adult, Abnormal Uterine Bleeding. - Prescriptions for Diclofenac Sodium 75 mg Oral Tablet Sustained Release - take 1 tablet by ORAL route 2 times per day; 30 tablet. - Medication Reconciliation Form, Thank You Letter form. - Follow up: Emergency Department; When: As needed; Reason: Worsening of condition. Follow up: Private Physician; When: 2 - 3 days; Reason: Recheck today's complaints, Continuance of care, Re-evaluation by your physician. - Problem is new. - Symptoms have improved. Signatures: Dispatcher [employer] EDMS Renan Mendoza MD MD cha Williams, Irene, RN DARIUS Los Crane, RN Joaquim Benjamin, INNA WELDER FITTER APPRENTICE pm1 Aby Green, DARIUS RN tl3 Corrections: (The following items were deleted from the chart) 02/18 16:21 16:07 02/18/2018 16:07 Discharged to Home. Impression: Other abnormal uterine and tl3 vaginal bleeding; Unspecified abdominal pain. Condition is Stable. Forms are Medication Reconciliation Form, Thank You Letter, Antibiotic Education, Prescription Opioid Use. Follow up: Emergency Department; When: As needed; Reason: Worsening of condition. Follow up: Private Physician; When: 2 - 3 days; Reason: Recheck today's complaints, Continuance of care, Re-evaluation by your physician. Problem is new. Symptoms have improved. pm1 22:42 13:00 : Negative for injury, bleeding, discharge, and swelling, MS/Extremity: pm1 Negative for injury and deformity, Skin: Negative for injury, rash, and discoloration, Neuro: Negative for headache, weakness, numbness, tingling, and seizure, pm1
--- NOTE | 2018-02-18 16:07 | ER ---
Nurse's Notes [facility] Name: Belle Boston Age: 27 yrs Sex: Female : 1990 Arrival Date: 02/18/2018 Time: 12:40 Bed 15 Private MD: Barney Guzman H Diagnosis: Other abnormal uterine and vaginal bleeding;Unspecified abdominal pain Presentation: 02/18 12:45 Presenting complaint: Patient states: ovaries started hurting Monday, started having iw vaginal bleeding, pain worse yesterday, bleeding worse, pain radiating to back, states it is not her normal time of month, hx of ovarian cyst. Transition of care: patient was not received from another setting of care. Onset of symptoms was February 15, 2018. Risk Assessment: Do you want to hurt yourself or someone else? Patient reports no desire to harm self or others. Initial Sepsis Screen: Does the patient meet any 2 criteria? No. Patient's initial sepsis screen is negative. Does the patient have a suspected source of infection? No. Patient's initial sepsis screen is negative. Care prior to arrival: None. 12:45 Method Of Arrival: Ambulatory iw 12:45 Acuity: GUTIERREZ 3 iw Triage Assessment: 13:16 General: Appears in no apparent distress. uncomfortable, Behavior is calm, cooperative, hj appropriate for age. Pain: Complains of pain in ovaries. Musculoskeletal: Circulation, motion, and sensation intact. Capillary refill. 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 - Social history:: Smoking status: Patient/guardian denies using tobacco. - Ebola Screening: : Patient negative for fever greater than or equal to 101.5 degrees Fahrenheit, and additional compatible Ebola Virus Disease symptoms Patient denies exposure to infectious person Patient denies travel to an Ebola-affected area in the 21 days before illness onset No symptoms or risks identified at this time. Screenin:16 Abuse screen: Denies threats or abuse. Denies injuries from another. Nutritional hj screening: No deficits noted. Tuberculosis screening: No symptoms or risk factors identified. Fall Risk None identified. Assessment: 13:17 General: Appears in no apparent distress. uncomfortable, obese, Behavior is calm, hj cooperative, appropriate for age. Pain: Complains of pain in ovaries. Neuro: Level of Consciousness is awake, alert, obeys commands, Oriented to person, place, time, situation, Appropriate for age. Cardiovascular: Capillary refill < 3 seconds Patient's skin is warm and dry. Respiratory: Airway is patent Respiratory effort is even, unlabored, Respiratory pattern is regular, symmetrical. GI: No signs and/or symptoms were reported involving the gastrointestinal system. : Reports vaginal bleeding that is. EENT: No signs and/or symptoms were reported regarding the EENT system. Derm: No signs and/or symptoms reported regarding the dermatologic system. Musculoskeletal: No signs and/or symptoms reported regarding the musculoskeletal system. 15:19 Reassessment: Patient and/or family updated on plan of care and expected duration. Pain tl3 level reassessed. Patient is alert, oriented x 3, equal unlabored respirations, skin warm/dry/pink. pt returned from CT, no needs at this time. 16:20 Reassessment: Patient appears in no apparent distress at this time. No changes from tl3 previously documented assessment. Patient and/or family updated on plan of care and expected duration. Pain level reassessed. Patient is alert, oriented x 3, equal unlabored respirations, skin warm/dry/pink. Vital Signs: 12:47 BP 148 / 77; Pulse 93; Resp 16; Temp 97.4; Pulse Ox 100% on R/A; Weight 96.62 kg; iw Height 5 ft. 5 in. (165.10 cm); Pain 7/10; 15:19 BP 122 / 87; Pulse 73; Resp 18; Pulse Ox 100% on R/A; tl3 16:20 BP 110 / 64; Pulse 79; Resp 18; Pulse Ox 100% on R/A; tl3 12:47 Body Mass Index 35.44 (96.62 kg, 165.10 cm) iw ED Course: 12:40 Patient arrived in ED. sb2 12:40 Barney Guzman DO is Private Physician. sb2 12:46 Triage completed. iw 12:47 Arm band placed on. iw 12:55 Joaquim Gutierrez NP is PHCP. pm1 12:56 Renan Mendoza MD is Attending Physician. pm1 12:56 Los Crane, DARIUS is Primary Nurse. hj 13:17 Patient has correct armband on for positive identification. Bed in low position. Call hj light in reach. Side rails up X 1. 14:10 Initial lab(s) drawn, by me, sent to lab. Urine collected: clean catch specimen, clear. Inserted saline lock: 22 gauge in right antecubital area, using aseptic technique. Blood collected. 15:06 CT Abd/Pelvis - W/Contrast In Process Unspecified. EDMS 15:06 CT completed. Patient tolerated procedure well. Patient moved back from CT. bq 16:20 No provider procedures requiring assistance completed. IV discontinued, intact, tl3 bleeding controlled, No redness/swelling at site. Pressure dressing applied. Administered Medications: 14:34 Drug: NS 0.9% 1000 ml Route: IV; Rate: 1000 ml; Site: right antecubital; hj 16:17 Follow up: IV Status: Completed infusion; IV Intake: 700ml tl3 16:17 Drug: TORadol 30 mg Route: IVP; Infused Over: 2 mins; Site: right antecubital; tl3 16:17 Follow up: Response: Medication administered at discharge. tl3 Intake: 16:17 IV: 700ml; Total: 700ml. tl3 Outcome: 16:07 Discharge ordered by . pm1 16:20 Discharged to home ambulatory. tl3 16:20 Condition: stable 16:20 Discharge instructions given to patient, Instructed on discharge instructions, follow up and referral plans. medication usage, Demonstrated understanding of instructions, follow-up care, medications, Prescriptions given X 1. 16:21 Patient left the ED. tl3 Signatures: Dispatcher [employer] EDSC Jaz Montoya Irene, RN RN iw Joaquin, Henry, Joaquim Benjamin RN, NP SENIOR ADMINISTRATIVE ASSISTANT pm1 Rosa Villafana sb2 Aby Green, DARIUS RN tl3
[2018-02-18] MEDS ORDERED: KETOROLAC 30 MG/ML INJ ONE (16:23)
[2018-02-18 16:33] VITALS: TEMP 97.4; O2SAT 100
[2018-02-18 16:36] VITALS: BP 110/64
== END 2018-02-18 16:21 | disposition home or self-care (01) ==
LOC: ER 12:31
DX: N93.8 Other specified abnormal uterine and vaginal bleeding (principal); R10.9 Unspecified abdominal pain; M54.5 Low back pain
CPT/HCPCS: 36415; 74177; 80053; 81003; 81025; 85025; 96361; 96374; 99284; J7030; Q9967

== ENCOUNTER 2018-10-04 19:43 | Emergency (ER) | payer SELFPAY ==
[2018-10-04 20:16] LABS: Urine Blood NEGATIVE (NEG); Urine Glucose NEGATIVE (NEG); Urine Protein NEGATIVE (NEG); Urine Specific Gravity >1.030 (1.005-1.030)
[2018-10-04 20:24] LABS: Absolute Lymphocytes (CBC) 2.3 K/uL (0.7-4.9); Basophils % 0.8 % (0-1.3); Hematocrit 41.1 % (36.0-45.0); Lymphocytes % 23.4 % (15.3-44.8); MPV 8.1 fL (7.6-11.3); RBC Red Blood Cell Count 4.63 M/uL (3.86-4.86)
[2018-10-04 20:35] LABS: BUN Blood Urea Nitrogen 11 mg/dL (7-18); Bicarbonate 27 mmol/L (21-32); Glucose Level 99 mg/dL (74-106); Sodium Level 141 mmol/L (136-145)
--- NOTE | 2018-10-04 20:41 | RAD REPORT ---
EXAM DESCRIPTION: CT - Spine Lumbar W/Cont - 10/04/2018 8:25 pm CLINICAL HISTORY: Radiculopathy. Lower back pain;Numbness/tingling;Pain COMPARISON: <Comparisons> TECHNIQUE: Axial CT imaging of the lumbar spine was performed with coronal and sagittal re-formatted images. All CT scans are performed using dose optimization technique as appropriate and may include automated exposure control or mA/KV adjustment according to patient size. FINDINGS: No acute lumbar spine fracture seen. No aggressive marrow pattern or malalignment. Paraspinal tissues are normal in thickness. No paraspinal abscess or hematoma seen. Intervertebral disc disease assessment is inherently limited by CT. Within these limitations, no high -grade canal stenosis suspected. Mild posterior disc bulges suspected lower lumbar levels. IMPRESSION: No acute lumbar spine abnormality discerned. Consider MRI follow-up for assessment of disc disease if clinically desired.
--- NOTE | 2018-10-04 21:12 | ER ---
Nurse's Notes [facility] Name: Belle Boston Age: 28 yrs Sex: Female : 1990 Arrival Date: 10/04/2018 Time: 19:47 Bed 25 Private MD: Barney Guzman H Diagnosis: Low back pain;Radiculopathy Presentation: 10/04 20:00 Presenting complaint: Patient states: I started having pains on my mid lower back last rv Monday and then now the pain spreads to the sides. I can't sleep on my back. I started having some numbness down to my right leg. I lost sensation to pee. Denies any continence or pain with urination. Transition of care: patient was not received from another setting of care. Onset of symptoms was October 02, 2018 at 15:00. Risk Assessment: Do you want to hurt yourself or someone else? Patient reports no desire to harm self or others. Initial Sepsis Screen: Does the patient meet any 2 criteria? No. Patient's initial sepsis screen is negative. Does the patient have a suspected source of infection? No. Patient's initial sepsis screen is negative. Care prior to arrival: None. 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 - Social history:: Smoking status: Patient/guardian denies using tobacco, never smoked. - Ebola Screening: : No symptoms or risks identified at this time. Screenin:06 Abuse screen: Denies threats or abuse. Denies injuries from another. Nutritional rv screening: No deficits noted. Tuberculosis screening: No symptoms or risk factors identified. Fall Risk None identified. Assessment: 20:05 General: Appears in no apparent distress. uncomfortable, Behavior is calm, cooperative. rv Pain: Complains of pain in lumbar area. Neuro: Level of Consciousness is awake, alert, obeys commands, Oriented to person, place, time, situation. Cardiovascular: Patient's skin is warm and dry. Respiratory: Airway is patent. GI: No signs and/or symptoms were reported involving the gastrointestinal system. : No signs and/or symptoms were reported regarding the genitourinary system. EENT: No signs and/or symptoms were reported regarding the EENT system. Derm: Skin is intact. Musculoskeletal: Reports pain in lumbar area. Vital Signs: 20:04 BP 145 / 93; Pulse 82; Resp 17; Temp 97.8; Pulse Ox 100% ; Weight 95.25 kg; Height 5 rv ft. 6 in. (167.64 cm); 21:26 BP 120 / 85; Pulse 81; Resp 15; Pulse Ox 100% on R/A; rv 20:04 Body Mass Index 33.89 (95.25 kg, 167.64 cm) rv ED Course: 19:47 Patient arrived in ED. am2 19:47 Barney Guzman DO is Private Physician. am2 19:47 Umair Ortez MD is Attending Physician. kdr 19:53 Christie Erwin RN is Primary Nurse. ca1 20:04 Triage completed. rv 20:07 Patient has correct armband on for positive identification. Bed in low position. Call rv light in reach. Side rails up X 1. Pulse ox on. NIBP on. 20:07 Patient placed in the treatment room, on a stretcher, on pulse oximetry, Patient rv notified of wait time. 20:09 Radiology exam delayed due to test not completed at this time. nj 20:28 Spine Lumbar W/Cont In Process Unspecified. EDMS 20:30 Inserted saline lock: 22 gauge in left antecubital area, using aseptic technique. rv ,using aseptic technique. by Christie MCCOY. 21:09 Barney Guzman DO is Referral Physician. kdr 21:27 No provider procedures requiring assistance completed. rv 21:28 IV discontinued, intact, bleeding controlled, No redness/swelling at site. Pressure rv dressing applied. Administered Medications: No medications were administered Outcome: 21:11 Discharge ordered by . kdr 21:29 Discharged to home ambulatory. rv 21:29 Condition: good 21:29 Discharge instructions given to patient, Instructed on discharge instructions, follow up and referral plans. medication usage, Demonstrated understanding of instructions, follow-up care, medications, Prescriptions given X 3. 21:29 Patient left the ED. rv Signatures: Dispatcher [employer] EDMS Umair Ortez MD MD kdr Jordan, Nathan nj Moreno, Amanda am2 Vicente, Ronaldo, RN RN rv Christie Erwin RN RN ca1 Corrections: (The following items were deleted from the chart) 21:28 20:30 Inserted saline lock: IV discontinued, intact, bleeding controlled, No rv redness/swelling at site. Pressure dressing applied, rv
--- NOTE | 2018-10-04 21:12 | EDPHYS ---
Physician Documentation [facility] Name: Belle Boston Age: 28 yrs Sex: Female : 1990 Arrival Date: 10/04/2018 Time: 19:47 Bed 25 Private MD: Barney Guzman H ED Physician Umair Ortez HPI: 10/04 20:13 This 28 yrs old Female presents to ER via Ambulatory with complaints of kdr Urinary Problem. 20:13 The patient presents with States she has no sensation that she has to urinate though kdr she does have sensation of urinating. States that she has had back pain since last Monday in her low back. Today, she had a period of numbness in her left leg which appears to be positional and dependent upon how she is sitting. Currently in the ED, she is having pain but the numbness in her right left (down to her mid calf) has resolved. She denies incontinence of urine and stool. Onset: The symptoms/episode began/occurred gradually, Monday. Modifying factors: The symptoms are alleviated by Changing positions or sleeping on her stomach, the symptoms are aggravated by Sitting or laying on her back. Associated signs and symptoms: Pertinent positives: Lac of the sensation that she needs to urinate, Pertinent negatives: constipation, diarrhea, dysuria, fever, hematuria, nausea, urinary frequency, vaginal bleeding, vaginal discharge, vomiting. Severity of symptoms: At their worst the symptoms were mild, just prior to arrival, in the emergency department the symptoms have improved, moderately. The patient's method of control includes BCP. The patient has not experienced similar symptoms in the past. The patient has not recently seen a physician. [employer]: 20:04 LMP 09/20/2018 rv Historical: - Allergies: 20:05 No Known Allergies; rv - Home Meds: 20:05 None [Active]; rv - PMHx: 20:05 None; rv - PSHx: 20:05 Cholecystectomy; rv - Immunization history:: Adult Immunizations up to date. - Social history:: Smoking status: Patient/guardian denies using tobacco, never smoked. - Ebola Screening: : No symptoms or risks identified at this time. ROS: 20:13 Constitutional: Negative for fever, chills, and weight loss, Eyes: Negative for injury, kdr pain, redness, and discharge, ENT: Negative for injury, pain, and discharge, Neck: Negative for injury, pain, and swelling, Cardiovascular: Negative for chest pain, palpitations, and edema, Respiratory: Negative for shortness of breath, cough, wheezing, and pleuritic chest pain, Abdomen/GI: Negative for abdominal pain, nausea, vomiting, diarrhea, and constipation, Back: Negative for injury and pain, MS/Extremity: Negative for injury and deformity, Skin: Negative for injury, rash, and discoloration, Psych: Negative for depression, anxiety, suicide ideation, homicidal ideation, and hallucinations, Allergy/Immunology: Negative for hives, rash, and allergies, Endocrine: Negative for neck swelling, polydipsia, polyuria, polyphagia, and marked weight changes, Hematologic/Lymphatic: Negative for swollen nodes, abnormal bleeding, and unusual bruising. 20:13 : Positive for small amounts, Lack of sensation that she needs to urinate, Negative for urinary frequency, hematuria, pelvic pain, flank pain, burning with urination, difficulty urinating, bladder incontinence, foul smelling urine, vaginal bleeding, vaginal discharge, vaginal itching, menstrual abnormality, missed period, acute changes. Exam: 20:13 Constitutional: This is a well developed, well nourished patient who is awake, alert, kdr and in no acute distress. Head/Face: Normocephalic, atraumatic. Eyes: Pupils equal round and reactive to light, extra-ocular motions intact. Lids and lashes normal. Conjunctiva and sclera are non-icteric and not injected. Cornea within normal limits. Periorbital areas with no swelling, redness, or edema. Neck: Trachea midline, no thyromegaly or masses palpated, and no cervical lymphadenopathy. Supple, full range of motion without nuchal rigidity, or vertebral point tenderness. No Meningismus. Chest/axilla: Normal chest wall appearance and motion. Nontender with no deformity. No lesions are appreciated. Cardiovascular: Regular rate and rhythm with a normal S1 and S2. No gallops, murmurs, or rubs. Normal PMI, no JVD. No pulse deficits. Respiratory: Lungs have equal breath sounds bilaterally, clear to auscultation and percussion. No rales, rhonchi or wheezes noted. No increased work of breathing, no retractions or nasal flaring. Abdomen/GI: Soft, non-tender, with normal bowel sounds. No distension or tympany. No guarding or rebound. No evidence of tenderness throughout. Skin: Warm, dry with normal turgor. Normal color with no rashes, no lesions, and no evidence of cellulitis. MS/ Extremity: Pulses equal, no cyanosis. Neurovascular intact. Full, normal range of motion. Neuro: Awake and alert, GCS 15, oriented to person, place, time, and situation. Cranial nerves II-XII grossly intact. Motor strength 5/5 in all extremities. Sensory grossly intact. Cerebellar exam normal. Normal gait. Psych: Awake, alert, with orientation to person, place and time. Behavior, mood, and affect are within normal limits. 20:13 Back: pain, that is mild, of the lumbar area. Vital Signs: 20:04 BP 145 / 93; Pulse 82; Resp 17; Temp 97.8; Pulse Ox 100% ; Weight 95.25 kg; Height 5 rv ft. 6 in. (167.64 cm); 21:26 BP 120 / 85; Pulse 81; Resp 15; Pulse Ox 100% on R/A; rv 20:04 Body Mass Index 33.89 (95.25 kg, 167.64 cm) rv MDM: 21:11 Patient medically screened. kdr 21:41 Data reviewed: vital signs, nurses notes. Counseling: I had a detailed discussion with kdr the patient and/or guardian regarding: lab results, radiology results. 10/04 20:04 Order name: CBC with Diff; Complete Time: 21:07 kdr 10/04 20:04 Order name: Chem 7; Complete Time: 21:07 kdr 10/04 20:09 Order name: Urine Dipstick--Ancillary (enter results); Complete Time: 21:07 mw2 10/04 20:09 Order name: Urine --Ancillary (enter results); Complete Time: 21:07 mw2 10/04 20:19 Order name: Spine Lumbar W/Cont; Complete Time: 21:07 EDMS 10/04 19:50 Order name: Urine Dipstick-Ancillary (obtain specimen); Complete Time: 20:14 kdr 10/04 19:50 Order name: Urine Test (obtain specimen); Complete Time: 20:14 [facility] Administered Medications: No medications were administered Disposition: 10/04/18 21:11 Discharged to Home. Impression: Low back pain, Radiculopathy. - Condition is Stable. - Discharge Instructions: Back Injury Prevention, Hupi-xt-Ssyj, Back Pain, Adult, Dclt-py-Efyh, Back Exercises, [id number]-qr-Nhdf, Heat Therapy, Mltf-aw-Oezn, Radicular Pain. - Prescriptions for Ibuprofen 600 mg Oral Tablet - take 1 tablet by ORAL route every 6 hours As needed take with food; 15 tablet. Tylenol- Codeine #3 300-30 mg Oral Tablet - take 2 tablets by ORAL route every 6 hours As needed; 14 tablet. Medrol (Huber) 4 mg Oral Tablets, Dose Pack - take 1 tablet by ORAL route as directed - follow package instructions; 1 packet. Cyclobenzaprine 10 mg Oral Tablet - take 1 tablet by ORAL route every 8 hours As needed; 15 tablet. - Medication Reconciliation Form, Thank You Letter, Prescription Opioid Use form. - Follow up: Barney Guzman DO; When: 2 - 3 days; Reason: If symptoms return, Further diagnostic work-up, Recheck today's complaints, Continuance of care, Re-evaluation by your physician. - Problem is an acute exacerbation. - Symptoms have improved. Signatures: Dispatcher [employer] [facility] Umair Ortez MD MD kdr Yony Mason RN RN rv Corrections: (The following items were deleted from the chart) 20:19 20:05 Spine Lumbar Wo Con+CT.RAD.BRZ ordered. [facility] 21:29 21:11 10/04/2018 21:11 Discharged to Home. Impression: Low back pain; Radiculopathy. rv Condition is Stable. Forms are Medication Reconciliation Form, Thank You Letter, Antibiotic Education, Prescription Opioid Use. Follow up: Barney Guzman; When: 2 - 3 days; Reason: If symptoms return, Further diagnostic work-up, Recheck today's complaints, Continuance of care, Re-evaluation by your physician. Problem is an acute exacerbation. Symptoms have improved. kdr
[2018-10-04 21:39] VITALS: TEMP 97.8; O2SAT 100
[2018-10-04 21:41] VITALS: BP 120/85
== END 2018-10-04 21:29 | disposition home or self-care (01) ==
LOC: ER 19:43
DX: M54.10 Radiculopathy, site unspecified (principal)
CPT/HCPCS: 36415; 72132; 80048; 81003; 81025; 85025; 99284; Q9967

== ENCOUNTER 2021-04-24 08:50 | Emergency (ER) | payer SELFPAY ==
[2021-04-24 09:42] LABS: Absolute Lymphocytes (CBC) 0.8 K/uL (0.7-4.9); Hematocrit 35.6 % (36.0-45.0); Lymphocytes % 9.8 % (15.3-44.8); MPV 7.4 fL (7.6-11.3); RBC Red Blood Cell Count 4.12 M/uL (3.86-4.86)
[2021-04-24 09:49] LABS: Urine Blood 2+ (Negative); Urine Glucose Negative (Negative); Urine Protein Negative (Negative); Urine Specific Gravity 1.015 (1.005-1.030); Urine pH 6.5 (5.0-7.0)
[2021-04-24 09:57] LABS: ALT/SGPT 45 U/L (12-78); AST/SGOT 29 U/L (15-37); Albumin 3.5 g/dL (3.4-5.0); Alkaline Phosphatase 79 U/L (45-117); BUN Blood Urea Nitrogen 10 mg/dL (7-18); Bicarbonate 22 mmol/L (21-32); Bilirubin Direct 0.1 mg/dL (0-0.2); Bilirubin Total 0.5 mg/dL (0.2-1.0); Glucose Level 94 mg/dL (74-106); Lipase 66 U/L (73-393); Potassium 3.8 mmol/L (3.5-5.1); Sodium Level 134 mmol/L (136-145)
[2021-04-24] MEDS ORDERED: NA CHLORIDE 0.9% 1,000 ML ONE ×2 (09:58→12:20)
[2021-04-24] MEDS ORDERED: ONDANSETRON 4 MG/2 ML VIAL ONE (09:58)
[2021-04-24] MEDS ORDERED: MORPHINE 4 MG/ML SYR ONE (09:58)
[2021-04-24 10:15] LABS: Urine Specific Gravity/Preg 1.015 (1.005-1.030)
--- NOTE | 2021-04-24 11:41 | RAD REPORT ---
EXAM DESCRIPTION: US - Transvaginal OB - 04/24/2021 11:14 am CLINICAL HISTORY: ABD CRAMPING, COMPARISON: OB Complete dated 02/12/2016 FINDINGS: There is fluid and heterogenous material within a slightly dilated endometrial stripe. The re is no normal gestational sac seen. No IUP is evident. Both ovaries are normal with normal flow. IMPRESSION: Hypoechoic fluid is seen in the endometrium which is mildly dilated. No gestational sac or normal IUP findings are evident. In the setting of a positive HCG level, the findings would indicate of unknown location. Se rial HCG levels and follow-up pelvic sonography in 7-10 days would be recommended.
--- NOTE | 2021-04-24 12:09 | ER ---
Nurse's Notes [facility] Name: Belle Boston Age: 30 yrs Sex: Female : 1990 Arrival Date: 04/24/2021 Time: 08:50 Bed 4 Private MD: Diagnosis: related conditions, unspecified-ectopic ;Threatened ;UTI/ Urinary tract infection, site not specified Presentation: 04/24 09:08 Chief complaint: Patient states: Right lower quadrant abdominal pain that started a few ww days ago and has progressively gotten worse. Had fever for the past 2 days and nausea and vomiting. Coronavirus screen: Vaccine status: Patient reports being unvaccinated. Client denies travel out of the [place] in the last 14 days. Ebola Screen: Patient denies travel to an Ebola-affected area in the 21 days before illness onset. Initial Sepsis Screen: Does the patient meet any 2 criteria? HR > 90 bpm. Does the patient have a suspected source of infection? No. Patient's initial sepsis screen is negative. Risk Assessment: Do you want to hurt yourself or someone else? Patient reports no desire to harm self or others. Onset of symptoms is unknown. 09:08 Method Of Arrival: Ambulatory ww 09:08 Acuity: GUTIERREZ 3 ww Triage Assessment: 09:09 General: Appears uncomfortable, Behavior is cooperative. Pain: Complains of pain in ww suprapubic area and right lower quadrant. Neuro: Level of Consciousness is awake, alert, obeys commands, Oriented to person, place, time, situation, Speech is normal. Cardiovascular: Patient's skin is warm and dry. Respiratory: Airway is patent Respiratory effort is even, unlabored, Respiratory pattern is regular, symmetrical. GI: Reports lower abdominal pain, diarrhea, nausea, vomiting. : Reports inability to void. 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 - Social history:: Smoking status: Patient denies any tobacco usage or history of. - Family history:: not pertinent. Screenin:11 Abuse screen: Denies threats or abuse. Denies injuries from another. Nutritional ww screening: No deficits noted. Tuberculosis screening: No symptoms or risk factors identified. Fall Risk None identified. Assessment: 10:00 GI: Bowel sounds present X 4 quads. jg9 10:00 GI: Abd is soft X 4 quads Abdomen is tender to palpation. jg9 10:11 General: Appears in no apparent distress. comfortable, well groomed, Behavior is calm, ph cooperative, appropriate for age, Reports fever for 1-2 days. Pain: Complains of pain in right lower quadrant Pain does not radiate. Quality of pain is described as burning. Neuro: Level of Consciousness is awake, alert, obeys commands, Oriented to person, place, time, situation, Reports headache. Cardiovascular: Capillary refill < 3 seconds in bilateral fingers Patient's skin is warm and dry. Respiratory: Airway is patent Respiratory effort is even, unlabored, Respiratory pattern is regular, symmetrical. GI: Abdomen is non-distended, Reports lower abdominal pain, diarrhea, nausea. : Reports vaginal bleeding that is x 2 weeks. Derm: Skin is intact, is healthy with good turgor, Skin is pink, warm \T\ dry. Musculoskeletal: Circulation, motion, and sensation intact. Range of motion: intact in all extremities. 12:38 Reassessment: Patient appears in no apparent distress at this time. Patient and/or ph family updated on plan of care and expected duration. Pain level reassessed. Patient is alert, oriented x 3, equal unlabored respirations, skin warm/dry/pink. D/C pending completion of IV fluids. Vital Signs: 09:08 BP 142 / 92; Pulse 125; Resp 20; Temp 99.2; Pulse Ox 98% on R/A; Weight 104.33 kg; ww Height 5 ft. 5 in. (165.10 cm); Pain 7/10; 10:22 BP 121 / 96; Pulse 116; Resp 20; Pulse Ox 99% on R/A; ph 12:38 BP 118 / 78; Pulse 101; Resp 18; Pulse Ox 98% on R/A; ph 13:30 BP 110 / 69; Pulse 98; Resp 14 S; Pulse Ox 99% on R/A; jg9 09:08 Body Mass Index 38.27 (104.33 kg, 165.10 cm) ED Course: 08:50 Patient arrived in ED. as 09:09 Triage completed. ww 09:09 Arm band placed on right wrist. ww 09:13 Shayy Ramos, RN is Primary Nurse. ph 09:20 Renan Mendoza MD is Attending Physician. [facility] 09:28 Initial lab(s) drawn, by me. Inserted saline lock: 20 gauge in right antecubital area, ph using aseptic technique. Blood collected. 09:29 Patient has correct armband on for positive identification. Placed in gown. Bed in low ph position. Call light in reach. Side rails up X 1. Pulse ox on. NIBP on. Door closed. Noise minimized. 11:14 US Transvaginal Ob In Process Unspecified. EDMS 11:17 IV discontinued, intact, bleeding controlled, No redness/swelling at site. Pressure em1 dressing applied. 11:32 HCG-Quantitative Sent. jg9 11:32 Abo/rh Typing Sent. jg9 11:32 Urine Culture Sent. jg9 11:33 Resting quietly. Appears to be sleeping. jg9 12:09 Jerry Anaya MD is Referral Physician. [facility] 12:12 US Rp Exam Limited: right In Process Unspecified. EDMS 12:38 No provider procedures requiring assistance completed. Inserted saline lock: 20 gauge ph in right wrist, using aseptic technique. 13:32 IV discontinued. jg9 Administered Medications: 10:03 Drug: NS 0.9% 1000 ml Route: IV; Rate: 1 bolus; Site: right antecubital; ph 11:18 Follow up: Response: No adverse reaction; IV Status: IV infiltrated ph 11:09 Not Given (Patient Refused): morphine 4 mg IVP once; RASS on ADMIN: Combtv4, Very ph Agttd3, Agttd2, Rstlss1, AlertClm0, Drwsy-1, Lt Sdtn-2, Mod Sdtn-3, Dp Sdtn-4, UnArsble-5 12:37 Drug: NS 0.9% 1000 ml Route: IV; Rate: 1 bolus; Site: right wrist; ph 13:15 Follow up: IV Status: Completed infusion; IV Intake: 1000ml jg9 12:38 Drug: Rocephin (cefTRIAXone) 1 grams {Note: mixed in 1L bolus of NS.} Route: IV; Rate: ph per protocol; Site: right wrist; 12:40 Follow up: IV Status: Completed infusion; IV Intake: 20ml jg9 12:41 Not Given (Patient Refused): Ketorolac 30 mg IVP once ph 12:41 Not Given (Patient Refused): Zofran (Ondansetron) 4 mg IVP once; over 2 minutes ph Intake: 12:40 IV: 20ml; Total: 20ml. jg9 13:15 IV: 1000ml; Total: 1020ml. jg9 Outcome: 12:09 Discharge ordered by . reagan 13:30 Patient left the ED. ph 13:32 Discharged to home ambulatory. jg9 13:32 Condition: stable 13:32 Discharge instructions given to patient, Instructed on discharge instructions, follow up and referral plans. Demonstrated understanding of instructions, follow-up care, Prescriptions given X 1. Signatures: Dispatcher [employer] Renan Hitchcock MD MD cha Martinez, Amelia as Martinez, Eric em1 Shayy Ramos RN RN Arpita Dawson RN RN jg9 Chana Cleaning RN RN
--- NOTE | 2021-04-24 12:10 | EDPHYS ---
Physician Documentation [facility] Name: Belle Boston Age: 30 yrs Sex: Female : 1990 Arrival Date: 04/24/2021 Time: 08:50 Bed 4 Private MD: LENA Physician Renan Mendoza HPI: 04/24 09:36 This 30 yrs old Female presents to ER via Ambulatory with complaints of reagan Abdominal Pain. 09:36 The patient presents with abdominal pain in the right upper quadrant, right lower reagan quadrant. Onset: The symptoms/episode began/occurred 3 day(s) ago. The patient complains of pain in the right mid back and right low back. The pain does not radiate. Onset: The symptoms/episode began/occurred 3 day(s) ago. Modifying factors: The symptoms are alleviated by change of position, remaining still, the symptoms are aggravated by movement, palpation/percussion. The symptoms do not radiate. Associated signs and symptoms: The patient has no apparent associated signs or symptoms. Modifying factors: The symptoms are alleviated by remaining still. 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 - Social history:: Smoking status: Patient denies any tobacco usage or history of. - Family history:: not pertinent. ROS: 09:36 Constitutional: Negative for fever, chills, and weight loss, Eyes: Negative for injury, reagan pain, redness, and discharge, ENT: Negative for injury, pain, and discharge, Neck: Negative for injury, pain, and swelling, Cardiovascular: Negative for chest pain, palpitations, and edema, Respiratory: Negative for shortness of breath, cough, wheezing, and pleuritic chest pain, : Negative for injury, bleeding, discharge, and swelling, MS/Extremity: Negative for injury and deformity, Skin: Negative for injury, rash, and discoloration, Neuro: Negative for headache, weakness, numbness, tingling, and seizure, Psych: Negative for depression, anxiety, suicide ideation, homicidal ideation, and hallucinations, Allergy/Immunology: Negative for hives, rash, and allergies, Endocrine: Negative for neck swelling, polydipsia, polyuria, polyphagia, and marked weight changes. 09:36 Abdomen/GI: Positive for abdominal pain, abdominal cramps, of the posterior aspect of right lateral abdomen, anterior aspect of right lateral abdomen, right upper quadrant and right lower quadrant. 09:36 Back: Positive for pain with movement, flank pain, on the right. Exam: 09:36 Constitutional: This is a well developed, well nourished patient who is awake, alert, reagan and in no acute distress. Head/Face: Normocephalic, atraumatic. Eyes: Pupils equal round and reactive to light, extra-ocular motions intact. Lids and lashes normal. Conjunctiva and sclera are non-icteric and not injected. Cornea within normal limits. Periorbital areas with no swelling, redness, or edema. ENT: Nares patent. No nasal discharge, no septal abnormalities noted. Tympanic membranes are normal and external auditory canals are clear. Oropharynx with no redness, swelling, or masses, exudates, or evidence of obstruction, uvula midline. Mucous membranes moist. Neck: Trachea midline, no thyromegaly or masses palpated, and no cervical lymphadenopathy. Supple, full range of motion without nuchal rigidity, or vertebral point tenderness. No Meningismus. Chest/axilla: Normal chest wall appearance and motion. Nontender with no deformity. No lesions are appreciated. Cardiovascular: Regular rate and rhythm with a normal S1 and S2. No gallops, murmurs, or rubs. Normal PMI, no JVD. No pulse deficits. Respiratory: Lungs have equal breath sounds bilaterally, clear to auscultation and percussion. No rales, rhonchi or wheezes noted. No increased work of breathing, no retractions or nasal flaring. Back: No spinal tenderness. No costovertebral tenderness. Full range of motion. Female : Normal external genitalia. Skin: Warm, dry with normal turgor. Normal color with no rashes, no lesions, and no evidence of cellulitis. MS/ Extremity: Pulses equal, no cyanosis. Neurovascular intact. Full, normal range of motion. Neuro: Awake and alert, GCS 15, oriented to person, place, time, and situation. Cranial nerves II-XII grossly intact. Motor strength 5/5 in all extremities. Sensory grossly intact. Cerebellar exam normal. Normal gait. Psych: Awake, alert, with orientation to person, place and time. Behavior, mood, and affect are within normal limits. 09:36 Abdomen/GI: Inspection: abdomen appears normal, Bowel sounds: normal, in all quadrants, active, all quadrants, Palpation: mild abdominal tenderness, in the posterior aspect of right lateral abdomen, anterior aspect of right lateral abdomen, right upper quadrant and right lower quadrant, Liver: no appreciated palpable abnormalities, Hernia: not appreciated. Vital Signs: 09:08 BP 142 / 92; Pulse 125; Resp 20; Temp 99.2; Pulse Ox 98% on R/A; Weight 104.33 kg; ww Height 5 ft. 5 in. (165.10 cm); Pain 7/10; 10:22 BP 121 / 96; Pulse 116; Resp 20; Pulse Ox 99% on R/A; ph 12:38 BP 118 / 78; Pulse 101; Resp 18; Pulse Ox 98% on R/A; ph 13:30 BP 110 / 69; Pulse 98; Resp 14 S; Pulse Ox 99% on R/A; jg9 09:08 Body Mass Index 38.27 (104.33 kg, 165.10 cm) ww MDM: 09:20 Patient medically screened. reagan 09:55 Differential diagnosis: pyelonephritis, diverticulitis, Ectopic , non-specific reagan abd pain, pancreatitis, Pyelonephritis, Ureterolithiasis. Data reviewed: vital signs, nurses notes, lab test result(s), radiologic studies, ultrasound. Data interpreted: threat monitoring analyst: rate is 125 beats/min. Counseling: I had a detailed discussion with the patient and/or guardian regarding: the historical points, exam findings, and any diagnostic results supporting the discharge/admit diagnosis, lab results, radiology results. 04/24 09:30 Order name: Basic Metabolic Panel; Complete Time: 10:45 ph 04/24 09:30 Order name: CBC with Diff; Complete Time: 10:45 ph 04/24 09:30 Order name: Hepatic Function; Complete Time: 10:45 ph 04/24 09:30 Order name: Lipase; Complete Time: 10:45 ph 04/24 09:48 Order name: Urine Dipstick-Ancillary; Complete Time: 09:50 EDMS 04/24 09:51 Order name: Abo/rh Typing [facility] 04/24 09:51 Order name: HCG-Quantitative [facility] 04/24 09:52 Order name: ABO/RH typing; Complete Time: 12:51 [facility] 04/24 09:52 Order name: HCG, Quantitative; Complete Time: 11:02 [facility] 04/24 10:00 Order name: Test Urine - POC; Complete Time: 10:45 sp 04/24 10:46 Order name: Urine Culture [facility] 04/24 10:46 Order name: Urine Culture [facility] 04/24 09:30 Order name: IV Saline Lock; Complete Time: 10:21 ph 04/24 09:30 Order name: Labs collected and sent; Complete Time: 10:21 ph 04/24 09:30 Order name: Urine Dipstick-Ancillary (obtain specimen); Complete Time: 10:21 ph 04/24 09:30 Order name: Urine Test (obtain specimen); Complete Time: 10:21 ph 04/24 09:51 Order name: NPO; Complete Time: 09:52 [facility] 04/24 09:51 Order name: US Transvaginal Ob; Complete Time: 11:42 [facility] 04/24 11:44 Order name: US Rp Exam Limited: right; Complete Time: 12:51 [facility] Administered Medications: 10:03 Drug: NS 0.9% 1000 ml Route: IV; Rate: 1 bolus; Site: right antecubital; ph 11:18 Follow up: Response: No adverse reaction; IV Status: IV infiltrated ph 11:09 Not Given (Patient Refused): morphine 4 mg IVP once; RASS on ADMIN: Combtv4, Very ph Agttd3, Agttd2, Rstlss1, AlertClm0, Drwsy-1, Lt Sdtn-2, Mod Sdtn-3, Dp Sdtn-4, UnArsble-5 12:37 Drug: NS 0.9% 1000 ml Route: IV; Rate: 1 bolus; Site: right wrist; ph 13:15 Follow up: IV Status: Completed infusion; IV Intake: 1000ml jg9 12:38 Drug: Rocephin (cefTRIAXone) 1 grams {Note: mixed in 1L bolus of NS.} Route: IV; Rate: ph per protocol; Site: right wrist; 12:40 Follow up: IV Status: Completed infusion; IV Intake: 20ml jg9 12:41 Not Given (Patient Refused): Ketorolac 30 mg IVP once ph 12:41 Not Given (Patient Refused): Zofran (Ondansetron) 4 mg IVP once; over 2 minutes ph Disposition Summary: 04/24/21 12:09 Discharge Ordered Location: Home reagan Problem: new reagan Symptoms: have improved reagan Condition: Stable reagan Diagnosis - related conditions, unspecified - ectopic reagan - Threatened reagan - UTI/ Urinary tract infection, site not specified reagan Followup: reagan - With: Private Physician - When: Tomorrow - Reason: Recheck today's complaints, Continuance of care, Re-evaluation by your physician Followup: reagan - With: - When: 2 - 3 days - Reason: Recheck today's complaints, Re-evaluation by your physician Followup: reagan - With: Emergency Department - When: Tomorrow - Reason: Recheck today's complaints, Continuance of care, Re-evaluation by your physician Discharge Instructions: - Discharge Summary Sheet reagan - Ectopic reagan - Threatened Miscarriage reagan - Vaginal Bleeding During , First Trimester reagan - Urinary Tract Infection, Adult reagan - Urinary Tract Infection, Adult, Bwid-[id number]-Ejmx reagan - Threatened Miscarriage, Qefv-mu-Vxuu reagan - Ectopic , Qbhw-bn-Butf [facility] Forms: - Medication Reconciliation Form [facility] - Thank You Letter [facility] - Antibiotic Education [facility] - Prescription Opioid Use [facility] Prescriptions: - Zofran 4 mg Oral Tablet - take 1 tablet by ORAL route every 12 hours As needed; 20 tablet; Refills: 0, [facility] Product Selection Permitted - Cephalexin 500 mg Oral Capsule - take 1 capsule by ORAL route every 6 hours for 7 days; 28 capsule; Refills: 0, [facility] Product Selection Permitted Signatures: Dispatcher [employer] EDRenan Paz MD MD cha Hall, Patricia, RN RN Chana Meade RN RN Arpita Rico RN jg9 Corrections: (The following items were deleted from the chart) 09:52 09:36 Abdomen Limited+US.RAD.BRZ ordered. EDMS EDMS 09:57 09:36 Abdomen Pelvis W Con+CT.RAD.BRZ ordered. EDMS EDMS
--- NOTE | 2021-04-24 12:19 | RAD REPORT ---
EXAM DESCRIPTION: US - Renal Ultrasound-Limited - 04/24/2021 12:12 pm CLINICAL HISTORY: PAIN COMPARISON: Abdomen Exam Limited dated 10/20/2017; TRANSVAG OB dated 12/03/2015 FINDINGS: The right kidney is normal in size, shape and echotexture. The right kidney measures 13.0 x 5.6 x 4.2 cm. No hydronephrosis, focal mass or perinephric fluid. IMPRESSION: Unremarkable right renal sonogram.
[2021-04-24] MEDS ORDERED: CEFTRIAXONE 1000 MG/VIAL ONE (12:20)
[2021-04-24 14:00] VITALS: TEMP 99.2
[2021-04-24 14:02] VITALS: BP 118/78; O2SAT 98
== END 2021-04-24 13:30 | disposition home or self-care (01) ==
LOC: ER 08:50
DX: O00.90 Unspecified ectopic pregnancy without intrauterine pregnancy (principal); O23.41 Unspecified infection of urinary tract in pregnancy, first trimester; N39.0 Urinary tract infection, site not specified; Z3A.00 Weeks of gestation of pregnancy not specified
CPT/HCPCS: 36415; 76775; 76817; 80048; 80076; 81003; 81025; 83690; 84702; 85025; 86900; 86901; 87086; 87088; 96361; 96374; 99284; J2405; J7030

== ENCOUNTER 2021-04-25 12:17 | Emergency (ER) | payer SELFPAY ==
--- NOTE | 2021-04-25 13:44 | ER ---
Nurse's Notes [facility] Name: Belle Boston Age: 30 yrs Sex: Female : 1990 Arrival Date: 04/25/2021 Time: 12:20 Bed 24 Private MD: Diagnosis: Threatened Presentation: 04/25 12:26 Chief complaint: Patient states: Was here yesterday for abdominal pain with a possible ww etopic and coming to get HCG level recheck this AM. Coronavirus screen: Client denies travel out of the [place] in the last 14 days. Ebola Screen: Patient denies travel to an Ebola-affected area in the 21 days before illness onset. Initial Sepsis Screen: Does the patient meet any 2 criteria? No. Patient's initial sepsis screen is negative. Does the patient have a suspected source of infection? No. Patient's initial sepsis screen is negative. Risk Assessment: Do you want to hurt yourself or someone else? Patient reports no desire to harm self or others. Onset of symptoms is unknown. 12:26 Method Of Arrival: Ambulatory ww 12:26 Acuity: GUTIERREZ 4 ww Triage Assessment: 12:28 General: Appears in no apparent distress. Behavior is calm, cooperative. Pain: ww Complains of pain in right lower quadrant. Neuro: Level of Consciousness is awake, alert, obeys commands, Oriented to person, place, time, situation, Gait is steady, Speech is normal. Cardiovascular: Capillary refill < 3 seconds Patient's skin is warm and dry. Respiratory: Airway is patent Respiratory effort is even, unlabored, Respiratory pattern is regular, symmetrical. GI: Reports lower abdominal pain. Derm: Skin is intact, is healthy with good turgor. 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 - Social history:: Smoking status: Patient denies any tobacco usage or history of. Screenin:29 Abuse screen: Denies threats or abuse. Denies injuries from another. Nutritional ww screening: No deficits noted. Tuberculosis screening: No symptoms or risk factors identified. Fall Risk None identified. Assessment: 12:41 General: Appears in no apparent distress. comfortable, Behavior is calm, cooperative. lr4 Pain: Complains of pain in abdomen Pain currently is 4 out of 10 on a pain scale. Neuro: No deficits noted. Cardiovascular: No deficits noted. Respiratory: No deficits noted. GI: Reports lower abdominal pain. Vital Signs: 12:26 BP 139 / 82; Pulse 81; Resp 18; Temp 98.1; Pulse Ox 99% on R/A; Weight 104.33 kg; ww Height 5 ft. 5 in. (165.10 cm); Pain 5/10; 12:26 Body Mass Index 38.27 (104.33 kg, 165.10 cm) ww ED Course: 12:20 Patient arrived in ED. ds1 12:28 Triage completed. ww 12:28 Arm band placed on left wrist. ww 12:37 Vicki Turner RN is Primary Nurse. lr4 12:37 Joaquim Gutierrez NP is PHCP. pm1 12:37 Renan Mendoza MD is Attending Physician. pm1 12:41 Initial lab(s) drawn, by il, sent to lab. ww 12:47 Bed in low position. Call light in reach. Side rails up X 1. Door closed. Noise lr4 minimized. 12:47 No provider procedures requiring assistance completed. lr4 13:43 Jerry Anaya MD is Referral Physician. pm1 14:24 Patient did not have IV access during this emergency room visit. lr4 Administered Medications: No medications were administered Outcome: 12:48 Condition: stable lr4 13:44 Discharge ordered by . pm1 14:24 Discharged to home lr4 14:24 Discharge instructions given to patient. 14:25 Patient left the ED. lr4 Signatures: Gabriella Rodney ds1 Joaquim Gutierrez NP BICYCLE COURIER pm1 Chana Cleaning RN RN ww Vicki Turner RN RN lr4
--- NOTE | 2021-04-25 13:45 | EDPHYS ---
Physician Documentation [facility] Name: Belle Boston Age: 30 yrs Sex: Female : 1990 Arrival Date: 04/25/2021 Time: 12:20 Bed 24 Private MD: ED Physician Renan Mendoza HPI: 04/25 12:37 This 30 yrs old Female presents to ER via Ambulatory with complaints of HCG level pm1 recheck. 12:37 Returning to the ER for recheck of beta-hCG levels. Onset: The symptoms/episode pm1 began/occurred yesterday. Severity of symptoms: in the emergency department the symptoms have improved Patient reports improvement abdominal pain and resolution of vaginal bleeding today. The patient has not experienced similar symptoms in the past. The patient has been recently seen by a physician: with similar presenting complaints, lab tests were done, told to return for re-evaluation in the emergency department. Patient seen yesterday in the ER for complaints of vaginal bleeding. patient with early and was told to report to the ER for repeat beta-hCG. 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 - Social history:: Smoking status: Patient denies any tobacco usage or history of. ROS: 12:37 Constitutional: Negative for fever, chills, and weight loss, Cardiovascular: Negative pm1 for chest pain, palpitations, and edema, Respiratory: Negative for shortness of breath, cough, wheezing, and pleuritic chest pain. 12:37 : Negative for injury, bleeding, discharge, and swelling, MS/Extremity: Negative for injury and deformity, Skin: Negative for injury, rash, and discoloration, Neuro: Negative for headache, weakness, numbness, tingling, and seizure. 12:37 Abdomen/GI: Positive for abdominal pain, of the right upper quadrant. 12:37 Back: Positive for flank pain, on the right. 12:37 All other systems are negative. Exam: 12:37 Constitutional: This is a well developed, well nourished patient who is awake, alert, pm1 and in no acute distress. Head/Face: Normocephalic, atraumatic. 12:37 Back: No spinal tenderness. No costovertebral tenderness. Full range of motion. Skin: Warm, dry with normal turgor. Normal color with no rashes, no lesions, and no evidence of cellulitis. MS/ Extremity: Pulses equal, no cyanosis. Neurovascular intact. Full, normal range of motion. 12:37 Cardiovascular: Exam negative for acute changes, Rate: normal, Rhythm: regular, Pulses: no pulse deficits are appreciated, Heart sounds: normal, normal S1and S2. 12:37 Respiratory: Exam negative for acute changes. 12:37 Abdomen/GI: Exam negative for acute changes, Inspection: abdomen appears normal, Palpation: abdomen is soft and non-tender, in all quadrants. 12:37 Neuro: Exam negative for acute changes, Orientation: is normal, Mentation: is normal, Motor: is normal, moves all fours. Vital Signs: 12:26 BP 139 / 82; Pulse 81; Resp 18; Temp 98.1; Pulse Ox 99% on R/A; Weight 104.33 kg; ww Height 5 ft. 5 in. (165.10 cm); Pain 5/10; 12:26 Body Mass Index 38.27 (104.33 kg, 165.10 cm) ww MDM: 12:37 Patient medically screened. pm1 13:40 Data reviewed: vital signs. Data interpreted: Pulse oximetry: on room air is 99 %. pm1 Interpretation: normal. Counseling: I had a detailed discussion with the patient and/or guardian regarding: the historical points, exam findings, and any diagnostic results supporting the discharge/admit diagnosis, lab results, Return to the ER for repeat beta HCG in 48 hours or see Héctor in 48 hours for repeat beta HCG. Discussed return precautions. Patient appears to be having a miscarriage since beta HCG levels are lower today than yesterday. 04/25 12:32 Order name: HCG-Quantitative; Complete Time: 13:23 ww Administered Medications: No medications were administered Disposition: 18:30 Co-signature as Attending Physician, Renan Mendoza MD I agree with the assessment and reagan plan of care. Disposition Summary: 04/25/21 13:44 Discharge Ordered Location: Home pm1 Problem: new pm1 Symptoms: have improved pm1 Condition: Stable pm1 Diagnosis - Threatened pm1 Followup: pm1 - With: Jerry Anaya MD - When: 48 Hours - Reason: Recheck today's complaints, Continuance of care, Repeat Beta-HCG (48 Hours), Re-evaluation by your physician Followup: pm1 - With: Emergency Department - When: 48 Hours - Reason: Worsening of condition, Repeat Beta-HCG (48 Hours) Discharge Instructions: - Discharge Summary Sheet pm1 - Threatened Miscarriage pm1 Forms: - Medication Reconciliation Form pm1 - Thank You Letter pm1 - Antibiotic Education pm1 - Prescription Opioid Use pm1 Signatures: Dispatcher [employer] EDMS Renan Mendoza MD MD cha Marinas, Patrick, NP FELT PULLER pm1 Chana Cleaning RN RN ww
[2021-04-25 14:29] VITALS: BP 139/82; TEMP 98.1; O2SAT 99
== END 2021-04-25 14:25 | disposition home or self-care (01) ==
LOC: ER 12:17
DX: O20.0 Threatened abortion (principal); Z3A.00 Weeks of gestation of pregnancy not specified
CPT/HCPCS: 36415; 84702; 99283

== ENCOUNTER 2023-01-25 12:45 | Emergency (ER) | payer SELFPAY ==
[2023-01-25 13:14] LABS: Specific Gravity 1.019 (1.005-1.030)
[2023-01-25 13:18] LABS: Specific Gravity 1.019 (1.005-1.030); Urine Bacteria None Seen /HPF (<20); Urine Bilirubin NEGATIVE (Negative); Urine Blood Negative (Negative); Urine Clarity Extremely Turbid (Clear); Urine Color Colorless (Yellow); Urine Glucose NEGATIVE (Negative); Urine Mucus Slight /HPF (None Seen); Urine Protein NEGATIVE (Negative); Urine RBC <5 /HPF (None Seen); Urine Urobilinogen Normal (Normal); Urine pH 7.5 (5.0-7.0)
[2023-01-25] MEDS ORDERED: ACETAMINOPHEN 500 MG TAB ONE (13:29)
[2023-01-25] MEDS ORDERED: NA CHLORIDE 0.9% 1,000 ML ONE (13:29)
[2023-01-25] MEDS ORDERED: KETOROLAC 30 MG/ML INJ ONE (13:29)
[2023-01-25 13:43] LABS: Absolute Lymphocytes (CBC) 0.3 K/uL (0.7-4.9); Hematocrit 38.9 % (36.0-45.0); Lymphocytes % 3.4 % (15.3-44.8); MCV 89.2 fL (80-100); MPV 7.4 fL (7.6-11.3); Platelets 270 thou/uL (152-406); RBC Red Blood Cell Count 4.36 M/uL (3.86-4.86)
[2023-01-25 13:51] LABS: SARS-COV-2 RT PCR NEGATIVE (NEGATIVE)
[2023-01-25 13:58] LABS: Albumin 3.6 g/dL (3.4-5.0); Bilirubin Total 0.4 mg/dL (0.2-1.0); Potassium 3.6 mEq/L (3.5-5.1)
--- NOTE | 2023-01-25 14:48 | EDPHYS ---
Physician Documentation [facility] Name: Belle Boston Age: 32 yrs Sex: Female : 1990 Arrival Date: 01/25/2023 Time: 12:45 Bed 10 Private MD: ED Physician Monty Walton HPI: 01/25 13:01 This 32 yrs old Female presents to ER via Ambulatory with complaints of Back Pain, kb Fever. 13:01 Patient is a 32-year-old female who presents for back pain that started 3 days ago and kb fever with chills that started today. Denies abdominal pain, nausea, vomiting, diarrhea, cough, congestion, sore throat. 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 - Social history:: Smoking status: Patient denies any tobacco usage or history of. ROS: 13:00 Abdomen/GI: Negative for abdominal pain, nausea, vomiting, diarrhea, and constipation, kb 13:00 Constitutional: Positive for body aches, chills, fever, 13:00 Back: Positive for pain at rest, 13:00 All other systems are negative, Exam: 13:00 Constitutional: This is a well developed, well nourished patient who is awake, alert, kb and in no acute distress. Head/Face: Normocephalic, atraumatic. ENT: Moist Mucous membranes Cardiovascular: Regular rate Respiratory: Respirations even and unlabored. No increased work of breathing. Talking in full sentences Abdomen/GI: Soft, non-tender. No distention Back: No spinal tenderness. No costovertebral tenderness. Full range of motion. Skin: Warm, dry with normal turgor. Normal color. MS/ Extremity: Pulses equal, no cyanosis. Neurovascular intact. Full, normal range of motion. Neuro: Awake and alert, GCS 15, oriented to person, place, time, and situation. Moves all extremities. Normal gait. Vital Signs: 12:55 Pulse 136; Resp 20; Temp 100.7(O); Pulse Ox 100% ; Weight 97.52 kg; Height 5 ft. 5 in. ;ll1 13:08 BP 144 / 78; Pulse 117; Resp 18; Pulse Ox 99% ; Pain 8/10; tl4 13:30 BP 126 / 81; Pulse 112; Resp 21; Pulse Ox 98% ; tl4 14:00 BP 131 / 80; Pulse 106; Resp 18; Temp 99.7(O); Pulse Ox 100% ; Pain 3/10; tl4 14:30 BP 129 / 69; Pulse 101; Resp 18; Pulse Ox 99% ; Pain 3/10; tl4 15:00 BP 129 / 79; Pulse 98; Resp 18; Pulse Ox 99% ; tl4 15:30 BP 121 / 77; Pulse 99; Resp 18; Pulse Ox 99% ; Pain 3/10; tl4 12:55 Body Mass Index 35.78 (97.52 kg, 165.1 cm) ll1 13:08 Pain Scale: Adult tl4 14:00 Pain Scale: Adult tl4 14:30 Pain Scale: Adult tl4 15:30 Pain Scale: Adult tl4 [place] Coma Score: 13:10 Eye Response: spontaneous(4). Motor Response: obeys commands(6). Verbal Response: tl4 oriented(5). Total: 15. MDM: 12:54 Patient medically screened. kb 13:00 Data reviewed: vital signs, nurses notes. kb 14:46 Differential diagnosis: pyelonephritis, uti, kidney stone, flu, covid. Test considered kb but Not performed: CT: ct considered, but pt has no cva or abd tenderness, urinalysis wnl, flu positive. Counseling: I had a detailed discussion with the patient and/or guardian regarding the historical points, exam findings, and any diagnostic results supporting the discharge/admit diagnosis, lab results, the need for outpatient follow up, a family practitioner, to return to the emergency department if symptoms worsen or persist or if there are any questions or concerns that arise at home. 01/25 12:57 Order name: CBC with Diff; Complete Time: 14:54 kb 01/25 12:57 Order name: CMP; Complete Time: 14:01 kb 01/25 12:57 Order name: Test, Urine; Complete Time: 13:18 kb 01/25 12:57 Order name: Urinalysis w/ reflexes; Complete Time: 13:19 kb 01/25 12:57 Order name: COVID-19/FLU A+B/RSV; Complete Time: 14:31 kb 01/25 14:54 Order name: CBC Smear Scan; Complete Time: 14:54 EDIL 01/25 12:57 Order name: IV Saline Lock; Complete Time: 13:37 kb 01/25 12:57 Order name: Labs collected and sent; Complete Time: 13:37 kb Administered Medications: 13:17 Drug: Acetaminophen PO 1000 mg PO once Route: PO; tl4 14:22 Follow up: Response: Temperature is decreased tl4 13:25 Drug: NS 0.9% IV 1000 ml IV at 1 bolus Per protocol; 1000 mL bolus Route: IV; Rate: 1 tl4 bolus; Infused Over: 1 hrs; Site: left hand; Delivery: Primary tubing; 14:40 Follow up: Response: No adverse reaction; IV Status: Completed infusion; IV Intake: tl4 1000ml 13:27 Drug: Ketorolac IVP 15 mg IVP once Route: IVP; Site: left hand; tl4 14:22 Follow up: Response: Temperature is decreased; Pain is decreased tl4 Disposition: 13:55 I was immediately available on-site in the Emergency Department for consultation in the ms3 care of the patient. Disposition Summary: 01/25/23 14:47 Discharge Ordered Notes: Location: Home kb Condition: Stable kb Diagnosis - Influenza due to identified novel influenza A virus - B kb Followup: kb - With: Emergency Department - When: As needed - Reason: Worsening of condition Followup: kb - With: Private Physician - When: 2 - 3 days - Reason: Recheck today's complaints, Continuance of care, Re-evaluation by your physician Discharge Instructions: - Discharge Summary Sheet kb - Influenza, Adult, [id number] kb Forms: - Medication Reconciliation Form kb - Thank You Letter kb - Antibiotic Education kb - Prescription Opioid Use kb - Patient Portal Instructions kb - Leadership Thank You Letter kb Prescriptions: - Tamiflu 75 mg Oral capsule - take 1 tablet ORAL route every 12 hours for 5 days; 10 tablet; Refills: 0, kb Product Selection Permitted Signatures: Dispatcher [employer] EDMS Berta Stout, Emilie Bernard RN RN ll1 Monty Walton DO DO ms3 LogGokul mukherjee tl4 Corrections: (The following items were deleted from the chart) 13:00 13:00 Constitutional: Positive for body aches, fever, kb kb 14:47 14:46 Test considered but Not performed: CT: ct considered, but pt has no cva or abd kb tenderness, flu positive. kb
--- NOTE | 2023-01-25 14:48 | ER ---
Nurse's Notes [facility] Name: Belle Boston Age: 32 yrs Sex: Female : 1990 Arrival Date: 01/25/2023 Time: 12:45 Bed 10 Private MD: Diagnosis: Influenza due to identified novel influenza A virus-B Presentation: 01/25 12:55 Chief complaint: Patient states: Back pain since Monday. Bloating, fever, chills ll1 started today. Coronavirus screen: Client denies travel out of the [place] in the last 14 days. At this time, the client does not indicate any symptoms associated with coronavirus-19. Ebola Screen: Patient denies travel to an Ebola-affected area in the 21 days before illness onset. Initial Sepsis Screen: Does the patient meet any 2 criteria? No. Patient's initial sepsis screen is negative. Does the patient have a suspected source of infection? No. Patient's initial sepsis screen is negative. Risk Assessment: Do you want to hurt yourself or someone else? Patient reports no desire to harm self or others. Onset of symptoms was January 23, 2023. 12:55 Method Of Arrival: Ambulatory ll1 12:55 Acuity: GUTIERREZ 2 ll1 Triage Assessment: 12:58 General: Appears uncomfortable, ill, Behavior is calm, cooperative, appropriate for ll1 age, Reports chills for fever for feeling ill for fatigue for. Pain: Complains of pain in back Quality of pain is described as aching. Neuro: Reports weakness. GI: Reports bloating. Musculoskeletal: Reports pain in back. 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 - Social history:: Smoking status: Patient denies any tobacco usage or history of. Screenin:22 [facility] ED Fall Risk Assessment (Adult) History of falling in the last 3 months, tl4 including since admission No falls in past 3 months (0 pts) Confusion or Disorientation No (0 pts) Intoxicated or Sedated No (0 pts) Impaired Gait No (0 pts) Mobility Assist Device Used No (0 pt) Altered Elimination No (0 pt) Score/Fall Risk Level 0 - 2 = Low Risk Oriented to surroundings, Maintained a safe environment, Hourly rounding (assess needs \T\ fall precautionary measures) done, Used ambulatory aids as needed (educated on \T\ assisted with), Used gait belt as appropriate. Abuse screen: Denies threats or abuse. Denies injuries from another. Nutritional screening: No deficits noted. Tuberculosis screening: No symptoms or risk factors identified. Assessment: 13:08 Reassessment: No changes from previously documented assessment. Patient and/or family ll1 updated on plan of care and expected duration. Pain level reassessed. 14:23 Neuro: Level of Consciousness is awake, alert, obeys commands, Oriented to person, tl4 place, time, situation. Vital Signs: 12:55 Pulse 136; Resp 20; Temp 100.7(O); Pulse Ox 100% ; Weight 97.52 kg; Height 5 ft. 5 in. ;ll1 13:08 BP 144 / 78; Pulse 117; Resp 18; Pulse Ox 99% ; Pain 8/10; tl4 13:30 BP 126 / 81; Pulse 112; Resp 21; Pulse Ox 98% ; tl4 14:00 BP 131 / 80; Pulse 106; Resp 18; Temp 99.7(O); Pulse Ox 100% ; Pain 3/10; tl4 14:30 BP 129 / 69; Pulse 101; Resp 18; Pulse Ox 99% ; Pain 3/10; tl4 15:00 BP 129 / 79; Pulse 98; Resp 18; Pulse Ox 99% ; tl4 15:30 BP 121 / 77; Pulse 99; Resp 18; Pulse Ox 99% ; Pain 3/10; tl4 12:55 Body Mass Index 35.78 (97.52 kg, 165.1 cm) ll1 13:08 Pain Scale: Adult tl4 14:00 Pain Scale: Adult tl4 14:30 Pain Scale: Adult tl4 15:30 Pain Scale: Adult tl4 [place] Coma Score: 13:10 Eye Response: spontaneous(4). Motor Response: obeys commands(6). Verbal Response: tl4 oriented(5). Total: 15. ED Course: 12:48 Patient arrived in ED. mg5 12:54 Berta Stout FNP-C is PHCP. kb 12:54 Monty Walton DO is Attending Physician. kb 12:58 Triage completed. ll1 12:59 Arm band placed on. ll1 13:02 Gokul Guzman is Primary Nurse. tl4 13:08 Test, Urine Sent. ll1 13:08 Urinalysis w/ reflexes Sent. ll1 13:08 COVID-19/FLU A+B/RSV Sent. ll1 13:25 Inserted saline lock: 20 gauge in left hand, using aseptic technique. tl4 13:37 CBC with Diff Sent. tl4 13:37 CMP Sent. tl4 13:39 No provider procedures requiring assistance completed. tl4 14:23 Patient has correct armband on for positive identification. Bed in low position. Call tl4 light in reach. Side rails up X 1. Provided Education on: ED process, IV, medications. 15:38 IV discontinued, intact, bleeding controlled, No redness/swelling at site. Pressure tl4 dressing applied. Administered Medications: 13:17 Drug: Acetaminophen PO 1000 mg PO once Route: PO; tl4 14:22 Follow up: Response: Temperature is decreased tl4 13:25 Drug: NS 0.9% IV 1000 ml IV at 1 bolus Per protocol; 1000 mL bolus Route: IV; Rate: 1 tl4 bolus; Infused Over: 1 hrs; Site: left hand; Delivery: Primary tubing; 14:40 Follow up: Response: No adverse reaction; IV Status: Completed infusion; IV Intake: tl4 1000ml 13:27 Drug: Ketorolac IVP 15 mg IVP once Route: IVP; Site: left hand; tl4 14:22 Follow up: Response: Temperature is decreased; Pain is decreased tl4 Medication: 14:24 VIS not applicable for this client. tl4 Intake: 14:40 IV: 1000ml; Total: 1000ml. tl4 Outcome: 14:47 Discharge ordered by . kb 15:38 Discharged to home ambulatory, tl4 15:38 Condition: stable 15:38 Discharge instructions given to patient, Instructed on discharge instructions, follow up and referral plans. medication usage, Demonstrated understanding of instructions, follow-up care, medications, 15:39 Patient left the ED. tl4 Signatures: Berta Stout, DALIAC JADEN-Emilie Rinaldi RN RN ll1 Eloisa Correia mg5 LogGokul mukherjee tl4 Corrections: (The following items were deleted from the chart) 13:08 BP 144 / 78; ll1 tl4
[2023-01-25 14:53] LABS: Platelet Estimate ADEQ; White Blood Cell Scan OK (OK)
[2023-01-25 14:54] LABS: Blood Morphology Comment NOT SEEN (NOT SEEN)
[2023-01-25 17:52] VITALS: BP 131/80; TEMP 99.7; O2SAT 100
== END 2023-01-25 15:39 | disposition home or self-care (01) ==
LOC: ER 12:45
DX: J10.1 Influenza due to other identified influenza virus with other respiratory manifestations (principal); Z11.52 Encounter for screening for COVID-19
CPT/HCPCS: 0241U; 36415; 80053; 81001; 81025; 85025; J7030

== ENCOUNTER → 2023-02-02 | Emergency (ER) | payer SELFPAY ==
[2023-02-02 09:31] LABS: Absolute Lymphocytes (CBC) 1.7 K/uL (0.7-4.9); Hematocrit 37.1 % (36.0-45.0); Lymphocytes % 14.4 % (15.3-44.8); MCV 87.3 fL (80-100); MPV 7.4 fL (7.6-11.3); Platelets 350 thou/uL (152-406); RBC Red Blood Cell Count 4.25 M/uL (3.86-4.86)
[2023-02-02 09:51] LABS: Albumin 3.5 g/dL (3.4-5.0); Bilirubin Total 0.3 mg/dL (0.2-1.0); Potassium 3.9 mEq/L (3.5-5.1); Protein, Total 7.8 g/dL (6.4-8.2)
--- NOTE | 2023-02-02 11:15 | EDPHYS ---
Physician Documentation [facility] Name: Belle Boston Age: 32 yrs Sex: Female : 1990 Arrival Date: 02/02/2023 Time: 08:51 Bed 2 Private MD: ED Physician Sajan Vasquez HPI: 02/02 09:34 This 32 yrs old Female presents to ER via Ambulatory with complaints of Leg Swelling, rt Feet Swelling. 09:34 Patient is currently on day 4 of antibiotics for cellulitis to the right lower rt extremity. Patient states that the redness has significant improving on antibiotic, but, over the front of her knee, but started coming out of the skin. States that overall she is doing better but has worsening edema to the lower extremity. Denies other acute complaints at this time, symptoms are mild in severity, no other aggravating or alleviating factors.. Historical: - Allergies: 08:58 Claritin; iw - Home Meds: 08:58 None [Active]; iw - PMHx: 08:58 None; iw - PSHx: 08:58 Cholecystectomy; iw - Immunization history:: Adult Immunizations not up to date. - Social history:: Smoking status: Patient denies any tobacco usage or history of. ROS: 09:34 Constitutional: Negative for fever, chills, and weight loss, Cardiovascular: Negative rt for chest pain, palpitations, and edema, Respiratory: Negative for shortness of breath, cough, wheezing, and pleuritic chest pain, Abdomen/GI: Negative for abdominal pain, nausea, vomiting, diarrhea, and constipation, Neuro: Negative for headache, weakness, numbness, tingling, and seizure, Psych: Negative for depression, anxiety, suicide ideation, homicidal ideation, and hallucinations, 09:34 Skin: Positive for Erythema, purulence, Exam: 09:34 Constitutional: This is a well developed, well nourished patient who is awake, alert, rt and in no acute distress. Head/Face: Normocephalic, atraumatic. Chest/axilla: Normal chest wall appearance and motion. Nontender with no deformity. No lesions are appreciated. Cardiovascular: Regular rate and rhythm with a normal S1 and S2. No gallops, murmurs, or rubs. Normal PMI, no JVD. No pulse deficits. Respiratory: Lungs have equal breath sounds bilaterally, clear to auscultation and percussion. No rales, rhonchi or wheezes noted. No increased work of breathing, no retractions or nasal flaring. Abdomen/GI: Soft, non-tender, with normal bowel sounds. No distension or tympany. No guarding or rebound. No evidence of tenderness throughout. Neuro: Awake and alert, GCS 15, oriented to person, place, time, and situation. Cranial nerves II-XII grossly intact. Motor strength 5/5 in all extremities. Sensory grossly intact. Cerebellar exam normal. Normal gait. Psych: Awake, alert, with orientation to person, place and time. Behavior, mood, and affect are within normal limits. 09:34 Musculoskeletal/extremity: Apparent cutaneous abscess overlying the right knee, able to range knee completely. Erythema does not seem to extend to the joint space. Mild edema noted, pulses, motor, sensation intact. Vital Signs: 08:59 BP 130 / 92; Pulse 99; Resp 18; Temp 98.2; Pulse Ox 100% on R/A; Weight 96.16 kg; iw 11:34 BP 118 / 87; Pulse 87; Resp 18; Temp 98; Pulse Ox 99% on R/A; ph Procedures: 14:14 I \T\ D: Incision and drainage was performed for an abscess of the right right knee rt Prepped with alcohol, Anesthetized with 2 ml's 1% Lidocaine. Incised with #11 blade. Drained moderate amount purulent fluid. Dressing: sterile 4x4 gauze, the patient tolerated the procedure well. MDM: 09:01 Patient medically screened. rt 14:14 Differential diagnosis: Cellulitis, abscess, septic arthritis. Data reviewed: vital rt signs, nurses notes, lab test result(s). I considered the following discharge prescriptions or medication management in the emergency department Medications were administered in the Emergency Department. See MAR. Test considered but Not performed: Labs: Patient able to range knee, parent cutaneous abscess only on physical examination, does not require arthrocentesis to rule out septic arthritis, I did discuss with the patient signs of septic arthritis and tell her to come to the ED for further evaluation should she develop the symptoms.. Counseling: I had a detailed discussion with the patient and/or guardian regarding the historical points, exam findings, and any diagnostic results supporting the discharge/admit diagnosis, lab results, the need for outpatient follow up. Response to treatment: the patient's symptoms have markedly improved after treatment. 02/02 09:11 Order name: CBC with Diff; Complete Time: :53 rt 02/02 09:11 Order name: CMP; Complete Time: :53 rt Administered Medications: 11:00 Drug: Lidocaine Infiltration (1 %) 5 mg Infiltration once Route: Infiltration; ph 11:15 Follow up: Response: No adverse reaction ph Disposition Summary: 02/02/23 11:15 Discharge Ordered Notes: Location: Home rt Problem: an ongoing problem rt Symptoms: have improved rt Condition: Stable rt Diagnosis - cutaneous abscess of right lower extremity rt Followup: rt - With: Private Physician - When: 2 - 3 days - Reason: Discharge Instructions: - Discharge Summary Sheet rt - Skin Abscess rt Forms: - Work release form iw - Medication Reconciliation Form rt - Thank You Letter rt - Antibiotic Education rt - Prescription Opioid Use rt - Patient Portal Instructions rt - Leadership Thank You Letter rt Signatures: Dispatcher [employer] Velia Arenas RN RN Shayy Ramos RN RN Sajan Vasquez MD MD rt
--- NOTE | 2023-02-02 11:15 | ER ---
Nurse's Notes [facility] Name: Belle Boston Age: 32 yrs Sex: Female : 1990 Arrival Date: 02/02/2023 Time: 08:51 Bed 2 Private MD: Diagnosis: cutaneous abscess of right lower extremity Presentation: 02/02 08:57 Chief complaint: Patient states: was seen here on 01-30 and diagnosed with right knee iw cellulitis , has been on antibiotics , not getting better, now her right leg is swollen. Coronavirus screen: At this time, the client does not indicate any symptoms associated with coronavirus-19. Ebola Screen: Patient negative for fever greater than or equal to 101.5 degrees Fahrenheit, and additional compatible Ebola Virus Disease symptoms Patient denies exposure to infectious person. Patient denies travel to an Ebola-affected area in the 21 days before illness onset. No symptoms or risks identified at this time. Initial Sepsis Screen: Does the patient meet any 2 criteria? No. Patient's initial sepsis screen is negative. Does the patient have a suspected source of infection? No. Patient's initial sepsis screen is negative. Risk Assessment: Do you want to hurt yourself or someone else? Patient reports no desire to harm self or others. Onset of symptoms was January 30, 2023. 08:57 Method Of Arrival: Ambulatory iw 08:57 Acuity: GUTIERREZ 3 iw Historical: - Allergies: 08:58 Claritin; iw - Home Meds: 08:58 None [Active]; iw - PMHx: 08:58 None; iw - PSHx: 08:58 Cholecystectomy; iw - Immunization history:: Adult Immunizations not up to date. - Social history:: Smoking status: Patient denies any tobacco usage or history of. Screenin:00 [facility] ED Fall Risk Assessment (Adult) History of falling in the last 3 months, ph including since admission No falls in past 3 months (0 pts) Score/Fall Risk Level 0 - 2 = Low Risk Oriented to surroundings, Maintained a safe environment, Hourly rounding (assess needs \T\ fall precautionary measures) done, Used ambulatory aids as needed (educated on \T\ assisted with). Abuse screen: Denies threats or abuse. Denies injuries from another. Nutritional screening: No deficits noted. Tuberculosis screening: No symptoms or risk factors identified. Assessment: 09:25 General: Appears in no apparent distress. comfortable, Behavior is calm, cooperative, kc6 appropriate for age. Pain: Complains of pain in right knee. Neuro: Level of Consciousness is awake, alert, obeys commands, Oriented to person, place, time, situation, Appropriate for age. Cardiovascular: Capillary refill < 3 seconds. Respiratory: Airway is patent Trachea midline Respiratory effort is even, unlabored, Respiratory pattern is regular, symmetrical. GI: No signs and/or symptoms were reported involving the gastrointestinal system. : No signs and/or symptoms were reported regarding the genitourinary system. EENT: No signs and/or symptoms were reported regarding the EENT system. Derm: Skin is pink, warm \T\ dry. Abscess located on right knee is golf ball sized, has purulent drainage, is hot to touch, is red. Musculoskeletal: No signs and/or symptoms reported regarding the musculoskeletal system. Circulation, motion, and sensation intact. Capillary refill < 3 seconds, Range of motion: intact in all extremities. 10:25 Reassessment: Patient appears in no apparent distress at this time. No changes from kc6 previously documented assessment. Patient and/or family updated on plan of care and expected duration. Pain level reassessed. Patient is alert, oriented x 3, equal unlabored respirations, skin warm/dry/pink. 11:25 Reassessment: Patient appears in no apparent distress at this time. No changes from kc6 previously documented assessment. Patient and/or family updated on plan of care and expected duration. Pain level reassessed. Patient is alert, oriented x 3, equal unlabored respirations, skin warm/dry/pink. Vital Signs: 08:59 BP 130 / 92; Pulse 99; Resp 18; Temp 98.2; Pulse Ox 100% on R/A; Weight 96.16 kg; iw 11:34 BP 118 / 87; Pulse 87; Resp 18; Temp 98; Pulse Ox 99% on R/A; ph ED Course: 08:53 Patient arrived in ED. mr 08:56 Sajan Vasquez MD is Attending Physician. rt 08:58 Triage completed. iw 08:58 Arm band placed on. iw 09:24 Anni Wren, DARIUS is Primary Nurse. kc6 09:25 Patient has correct armband on for positive identification. Placed in gown. Bed in low kc6 position. Call light in reach. Side rails up X 1. Client placed on continuous cardiac and pulse oximetry monitoring. NIBP monitoring applied. 09:25 Inserted saline lock: 20 gauge in right wrist, using aseptic technique. Blood kc6 collected. Patient maintains SpO2 saturation greater than 95% on room air. 11:15 Assist provider with I \T\ D: of an abscess on right knee Set up I\T\D tray. Performed by laurie Vasquez MD Dressing with ABD pad, 4X4s, Patient tolerated well. 11:16 IV discontinued, intact, bleeding controlled, No redness/swelling at site. Pressure ph dressing applied. Administered Medications: 11:00 Drug: Lidocaine Infiltration (1 %) 5 mg Infiltration once Route: Infiltration; ph 11:15 Follow up: Response: No adverse reaction ph Medication: 11:16 VIS not applicable for this client. ph Outcome: 11:15 Discharge ordered by MD. rt 11:34 Discharged to home ambulatory, with friend, ph 11:34 Condition: good 11:34 Discharge instructions given to patient, Instructed on discharge instructions, follow up and referral plans. wound care, Demonstrated understanding of instructions, follow-up care, wound care, 11:35 Patient left the ED. ph Signatures: Myriam Fregoso, Reg Reg mr Velia Bill RN RN iw Shayy Ramos RN RN ph Campbell, Kaitlyn, RN RN kc6 Sajan Vasquez MD MD rt
[2023-02-02 12:00] VITALS: BP 118/87; TEMP 98; O2SAT 99
== END ==
LOC: ER 08:51
PROC: 0H9KXZZ Drainage of Right Lower Leg Skin, External Approach (ICD-10-PCS; principal; 2023-02-02)
DX: L02.415 Cutaneous abscess of right lower limb (principal); Z88.8 Allergy status to other drugs, medicaments and biological substances
CPT/HCPCS: 36415; 80053; 85025; 99284

== ENCOUNTER 2023-08-23 08:19 | Emergency (ER) | payer SELFPAY ==
[2023-08-23 09:15] LABS: Absolute Eosinophils 0.3 K/uL (0-0.5); Absolute Lymphocytes (CBC) 1.2 K/uL (0.7-4.9); Absolute Monocytes 0.8 K/uL (0.1-1.3); Absolute Neutrophil 6.1 K/uL (1.8-8.0); Basophils % 0.4 % (0-1.3); Eosinophils % 3.5 % (0-4.4); Hematocrit 37.5 % (36.0-45.0); Hemoglobin 12.5 g/dL (12.0-15.0); MCH 29.6 pg (27.0-35.0); MCHC 33.4 g/dL (32.0-36.0); MCV 88.6 fL (80-100); MPV 7.6 fL (7.6-11.3); Monocytes % 9.1 % (3.3-12.3); Platelets 245 thou/uL (152-406); RBC Red Blood Cell Count 4.24 M/uL (3.86-4.86); Red Cell Distribution Width 13.4 % (12.1-15.2)
[2023-08-23 09:23] LABS: Specific Gravity > 1.030 (1.005-1.030)
[2023-08-23] MEDS ORDERED: ONDANSETRON 4 MG/2 ML VIAL ONE (09:23)
[2023-08-23] MEDS ORDERED: MORPHINE 4 MG/ML SYR ONE (09:23)
[2023-08-23] MEDS ORDERED: FAMOTIDINE 20 MG/2 ML VIAL IV ONE (09:24)
[2023-08-23] MEDS ORDERED: NA CHLORIDE 0.9% 1,000 ML ONE (09:24)
[2023-08-23 09:27] LABS: Specific Gravity > 1.030 (1.005-1.030); Transitional Epithelial <5 /HPF (None Seen); Urine Bacteria <20 /HPF (<20); Urine Bilirubin NEGATIVE (Negative); Urine Blood Negative (Negative); Urine Clarity Extremely Turbid (Clear); Urine Color Yellow (Yellow); Urine Culture Reflex Order REFLEXED; Urine Glucose NEGATIVE (Negative); Urine Ketones 1+ (Negative); Urine Microscopic Reflex YN ORDER UMIC; Urine Mucus 4+ /HPF (None Seen); Urine Nitrite NEGATIVE (Negative); Urine Protein TRACE (Negative); Urine RBC <5 /HPF (None Seen); Urine Urobilinogen 1+ (Normal)
[2023-08-23 09:35] LABS: Albumin 3.8 g/dL (3.4-5.0); Anion Gap 6.6 mEq/L (5.0-15.0); Bilirubin Total 0.8 mg/dL (0.2-1.0); Globulin 3.8 g/dL (2.3-3.5); Potassium 3.6 mEq/L (3.5-5.1); Protein, Total 7.6 g/dL (6.4-8.2)
[2023-08-23] MEDS ORDERED: CEFTRIAXONE 1000 MG/VIAL ONE (11:03)
--- NOTE | 2023-08-23 12:05 | RAD REPORT ---
EXAM DESCRIPTION: US - Transvaginal OB - 08/23/2023 10:48 am CLINICAL HISTORY: with abdominal pain COMPARISON: None. FINDINGS: The uterus measures 8 x 5 x 6 centimeters. The endometrial stripe normal thickness. A ges tational sac is not seen. Nabothian cysts are present. Ovaries are normal in size and echotexture.. The right and left adnexa unremarkable No significant free fluid IMPRESSION: Nonvisualization of a gestational sac within the endometrium. These findings could represent an early intrauterine in which the gestational sac is not se en. and even an ectopic can also result in this appearance. This all should be cor related clinically and with serial beta HCG levels. Followup endovaginal sonogram in 1 week recommend ed
--- NOTE | 2023-08-23 12:23 | EDPHYS ---
Physician Documentation [facility] Name: Belle Boston Age: 33 yrs Sex: Female : 1990 Arrival Date: 08/23/2023 Time: 08:19 Bed 8 Private MD: ED Physician Renan Mendoza HPI: 08/22 11:35 This 33 yrs old Female presents to ER via Ambulatory with complaints of reagan Abdominal Pain. 11:35 The patient presents with abdominal pain in the epigastric area, in the upper abdomen. reagan Onset: The symptoms/episode began/occurred just prior to arrival, this morning. The symptoms do not radiate. Associated signs and symptoms: Pertinent positives: nausea and vomiting. The symptoms are described as crampy. Severity of pain: At its worst the pain was mild in the emergency department the pain is unchanged. The patient has experienced similar episodes in the past, a few times. Historical: - Allergies: 08:34 Claritin; ll1 - PMHx: 08:37 None; ll1 - PSHx: 08:34 Cholecystectomy; ll1 - Immunization history:: Adult Immunizations up to date. - Infectious Disease History:: Denies. - Social history:: Smoking status: Patient denies any tobacco usage or history of. - Family history:: not pertinent. ROS: 11:35 Constitutional: Negative for fever, chills, and weight loss, Eyes: Negative for injury, reagan pain, redness, and discharge, ENT: Negative for injury, pain, and discharge, Neck: Negative for injury, pain, and swelling, Cardiovascular: Negative for chest pain, palpitations, and edema, Respiratory: Negative for shortness of breath, cough, wheezing, and pleuritic chest pain, Back: Negative for injury and pain, : Negative for injury, bleeding, discharge, and swelling, MS/Extremity: Negative for injury and deformity, Skin: Negative for injury, rash, and discoloration, Neuro: Negative for headache, weakness, numbness, tingling, and seizure, Psych: Negative for depression, anxiety, suicide ideation, homicidal ideation, and hallucinations, Allergy/Immunology: Negative for hives, rash, and allergies, Endocrine: Negative for neck swelling, polydipsia, polyuria, polyphagia, and marked weight changes, Hematologic/Lymphatic: Negative for swollen nodes, abnormal bleeding, and unusual bruising, 11:35 Abdomen/GI: Positive for abdominal pain, of the epigastric area, right upper quadrant and left upper quadrant, Exam: 11:35 Constitutional: This is a well developed, well nourished patient who is awake, alert, reagan and in no acute distress. Head/Face: Normocephalic, atraumatic. Eyes: Pupils equal round and reactive to light, extra-ocular motions intact. Lids and lashes normal. Conjunctiva and sclera are non-icteric and not injected. Cornea within normal limits. Periorbital areas with no swelling, redness, or edema. ENT: Nares patent. No nasal discharge, no septal abnormalities noted. Tympanic membranes are normal and external auditory canals are clear. Oropharynx with no redness, swelling, or masses, exudates, or evidence of obstruction, uvula midline. Mucous membranes moist. Neck: Trachea midline, no thyromegaly or masses palpated, and no cervical lymphadenopathy. Supple, full range of motion without nuchal rigidity, or vertebral point tenderness. No Meningismus. Chest/axilla: Normal chest wall appearance and motion. Nontender with no deformity. No lesions are appreciated. Cardiovascular: Regular rate and rhythm with a normal S1 and S2. No gallops, murmurs, or rubs. Normal PMI, no JVD. No pulse deficits. Respiratory: Lungs have equal breath sounds bilaterally, clear to auscultation and percussion. No rales, rhonchi or wheezes noted. No increased work of breathing, no retractions or nasal flaring. Abdomen/GI: Soft, non-tender, with normal bowel sounds. No distension or tympany. No guarding or rebound. No evidence of tenderness throughout. Back: No spinal tenderness. No costovertebral tenderness. Full range of motion. Skin: Warm, dry with normal turgor. Normal color with no rashes, no lesions, and no evidence of cellulitis. MS/ Extremity: Pulses equal, no cyanosis. Neurovascular intact. Full, normal range of motion. Neuro: Awake and alert, GCS 15, oriented to person, place, time, and situation. Cranial nerves II-XII grossly intact. Motor strength 5/5 in all extremities. Sensory grossly intact. Cerebellar exam normal. Normal gait. Psych: Awake, alert, with orientation to person, place and time. Behavior, mood, and affect are within normal limits. 11:35 Musculoskeletal/extremity: DVT Exam: No signs of deep vein thrombosis. no pain, no swelling, no tenderness, negative Homans' sign noted on exam, no appreciated bluish discoloration, no erythema, no increased warmth, Vital Signs: 08:37 BP 127 / 79; Pulse 77; Resp 16; Temp 97.4; Pulse Ox 100% ; Weight 96.16 kg; Height 5 ll1 ft. 5 in. ; Pain 4/10; 12:38 BP 122 / 74; Pulse 71; Resp 18; Pulse Ox 100% on R/A; ld1 08:37 Body Mass Index 35.28 (96.16 kg, 165.1 cm) ll1 08:37 Pain Scale: Adult ll1 MDM: 08:36 Patient medically screened. [facility] 11:37 Differential diagnosis: gastritis, Hepatitis, non-specific abd pain, pancreatitis, reagan urinary tract infection. Data reviewed: vital signs, nurses notes, lab test result(s), radiologic studies, ultrasound. Consideration of Admission/Observation Escalation of care including admission/observation considered. I considered the following discharge prescriptions or medication management in the emergency department Medications were administered in the Emergency Department. See MAR. Independent interpretation of the following test(s) in the Emergency Department Radiology Department Ultrasound: My interpretation is vag probe usg. Test considered but Not performed: EKG: no ekg. Care significantly affected by the following chronic conditions: none. 08/22 08:37 Order name: CBC with Diff; Complete Time: 10:15 [facility] 08/22 08:37 Order name: CMP; Complete Time: 10:15 [facility] 08/22 08:37 Order name: Lipase; Complete Time: 10:15 [facility] 08/22 08:37 Order name: Test, Urine; Complete Time: 10:15 [facility] 08/22 08:37 Order name: Urinalysis w/ reflexes; Complete Time: 10:15 [facility] 08/22 09:31 Order name: Urine Culture EDOR 08/22 10:17 Order name: Quantitative Hcg; Complete Time: 12:22 [facility] 08/22 10:17 Order name: US Transvaginal Ob; Complete Time: 12:11 [facility] 08/22 08:37 Order name: IV Saline Lock; Complete Time: 09:09 [facility] 08/22 08:37 Order name: Labs collected and sent; Complete Time: 09:09 reagan Administered Medications: 09:33 Drug: NS 0.9% IV 1000 ml IV at 1 bolus Per protocol; 1000 mL bolus Route: IV; Rate: 1 ld1 bolus; Site: right forearm; 09:33 Drug: Famotidine IVP 20 mg IVP once; dilute with 10 mL 0.9% NaCl; give over 2 minutes ld1 Route: IVP; Site: right forearm; 09:33 Drug: Ondansetron IVP 4 mg IVP once; over 2 minutes Route: IVP; Site: right forearm; ld1 09:33 Not Given (Patient Refused): morphineor iv 4 mg IVP once over 4 mins ld1 11:12 Drug: Rocephin IV 1 grams IV at per protocol once; Given slow IV push per pharmacy iw instructions Route: IV; Rate: per protocol; Site: right forearm; Disposition Summary: 08/23/23 12:22 Discharge Ordered Notes: Location: Home reagan Problem: new reagan Symptoms: have improved reagan Condition: Stable reagan Diagnosis - Epigastric abdominal tenderness reagan - Less than 8 weeks gestation of - new diagnosis reagan - UTI/ Urinary tract infection, site not specified reagan Followup: reagan - With: Private Physician - When: 2 - 3 days - Reason: Recheck today's complaints, Continuance of care, Re-evaluation by your physician Discharge Instructions: - Discharge Summary Sheet reagan - Abdominal Pain, Adult reagan - Abdominal Pain During reagan - Care reagan - Urinary Tract Infection, Adult reagan - First Trimester of , [id number] reagan - Urinary Tract Infection, Adult, [id number] reagan - First Trimester of reagan Forms: - Medication Reconciliation Form reagan - Antibiotic Education reagan - Prescription Opioid Use reagan - Patient Portal Instructions reagan - Leadership Thank You Letter [facility] Prescriptions: - cefdinir 300 mg Oral capsule - take 1 capsule ORAL route 2 times per day; 14 capsule; Refills: 0, Product reagan Selection Permitted Signatures: Dispatcher [employer] Renan Hitchcock MD MD cha Williams, Irene, RN RN iw Emilie Magdaleno RN RN ll1 Janice Walton RN RN ld1 Corrections: (The following items were deleted from the chart) 08:37 08:37 Abdomen Limited+US.RAD.BRZ ordered. EDMS EDMS 08:37 08:37 Abdomen Pelvis W Con+CT.RAD.BRZ ordered. EDMS EDMS 10:18 10:18 Transvaginal Ob+US.RAD.BRZ ordered. EDMS EDMS 10:18 10:18 QUANTITATIVE HCG+C.LAB.BRZ ordered. EDMS EDMS
--- NOTE | 2023-08-23 12:23 | ER ---
Nurse's Notes [facility] Name: Belle Boston Age: 33 yrs Sex: Female : 1990 Arrival Date: 08/23/2023 Time: 08:19 Bed 8 Private MD: Diagnosis: Epigastric abdominal tenderness;Less than 8 weeks gestation of -new diagnosis;UTI/ Urinary tract infection, site not specified Presentation: 08/22 08:37 Chief complaint: Patient states: Epigastric/RUQ abdominal pain with N/V for 4 days. No ll1 fever. Coronavirus screen: Client denies travel out of the [place] in the last 14 days. At this time, the client does not indicate any symptoms associated with coronavirus-19. Ebola Screen: Patient denies travel to an Ebola-affected area in the 21 days before illness onset. Initial Sepsis Screen: Does the patient meet any 2 criteria? No. Patient's initial sepsis screen is negative. Does the patient have a suspected source of infection? No. Patient's initial sepsis screen is negative. Risk Assessment: Do you want to hurt yourself or someone else? Patient reports no desire to harm self or others. Onset of symptoms was August 20, 2023. 08:37 Method Of Arrival: Ambulatory ll1 08:37 Acuity: GUTIERREZ 3 ll1 Historical: - Allergies: 08:34 Claritin; ll1 - PMHx: 08:37 None; ll1 - PSHx: 08:34 Cholecystectomy; ll1 - Immunization history:: Adult Immunizations up to date. - Infectious Disease History:: Denies. - Social history:: Smoking status: Patient denies any tobacco usage or history of. - Family history:: not pertinent. Screenin:33 [facility] ED Fall Risk Assessment (Adult) History of falling in the last 3 months, ld1 including since admission No falls in past 3 months (0 pts) Confusion or Disorientation No (0 pts) Intoxicated or Sedated No (0 pts) Impaired Gait No (0 pts) Mobility Assist Device Used No (0 pt) Altered Elimination No (0 pt) Score/Fall Risk Level 0 - 2 = Low Risk Oriented to surroundings, Maintained a safe environment, Educated pt \T\ family on fall prevention, incl call for assistance when getting out of bed, Assessed \T\ reinforced patient's understanding of fall precautions, Provided non-skid footwear, Hourly rounding (assess needs \T\ fall precautionary measures) done, Used ambulatory aids as needed (educated on \T\ assisted with), Used gait belt as appropriate. Abuse screen: Denies threats or abuse. Denies injuries from another. Nutritional screening: No deficits noted. Tuberculosis screening: No symptoms or risk factors identified. Assessment: 09:33 General: Appears in no apparent distress. comfortable, Behavior is calm, cooperative, ld1 appropriate for age. Pain: Complains of pain in abdomen Pain does not radiate. Pain currently is 7 out of 10 on a pain scale. Quality of pain is described as throbbing, Pain began suddenly, Is continuous. Neuro: Level of Consciousness is awake, alert, obeys commands, Oriented to person, place, time, situation, Appropriate for age. Cardiovascular: Capillary refill < 3 seconds Patient's skin is warm and dry. Respiratory: Airway is patent Respiratory effort is even, unlabored. GI: Abdomen is round non-distended, Bowel sounds present X 4 quads. Abd is soft Abd is non tender Reports lower abdominal pain, upper abdominal pain, nausea. : No signs and/or symptoms were reported regarding the genitourinary system. EENT: No signs and/or symptoms were reported regarding the EENT system. Derm: No signs and/or symptoms reported regarding the dermatologic system. Derm: No signs and/or symptoms reported regarding the dermatologic system. Musculoskeletal: No signs and/or symptoms reported regarding the musculoskeletal system. 11:14 Reassessment: Patient appears in no apparent distress at this time. Patient and/or iw family updated on plan of care and expected duration. Pain level reassessed. Patient is alert, oriented x 3, equal unlabored respirations, skin warm/dry/pink. 12:38 Reassessment: Patient appears in no apparent distress at this time. No changes from ld1 previously documented assessment. Patient and/or family updated on plan of care and expected duration. Pain level reassessed. Patient is alert, oriented x 3, equal unlabored respirations, skin warm/dry/pink. Vital Signs: 08:37 BP 127 / 79; Pulse 77; Resp 16; Temp 97.4; Pulse Ox 100% ; Weight 96.16 kg; Height 5 ll1 ft. 5 in. ; Pain 4/10; 12:38 BP 122 / 74; Pulse 71; Resp 18; Pulse Ox 100% on R/A; ld1 08:37 Body Mass Index 35.28 (96.16 kg, 165.1 cm) ll1 08:37 Pain Scale: Adult ll1 ED Course: 08:31 Patient arrived in ED. mg5 08:36 Renan Mendoza MD is Attending Physician. reagan 08:37 Arm band placed on. ll1 08:39 Triage completed. ll1 09:09 CBC with Diff Sent. bc6 09:09 CMP Sent. bc6 09:09 Lipase Sent. bc6 09:09 Test, Urine Sent. bc6 09:09 Urinalysis w/ reflexes Sent. bc6 09:09 Initial lab(s) drawn, by me, sent to lab. Inserted saline lock: 24 gauge in right bc6 forearm, using aseptic technique. Blood collected. 09:18 Janice Walton, RN is Primary Nurse. ld1 09:33 Patient has correct armband on for positive identification. Placed in gown. Bed in low ld1 position. Call light in reach. Side rails up X2. Pulse ox on. NIBP on. Door closed. Noise minimized. Warm blanket given. 10:49 US Transvaginal Ob In Process Unspecified. EDMS 11:14 Provided Education on: diagnostic wait time. Lights dimmed. iw 11:59 Quantitative Hcg Sent. ld1 12:38 No provider procedures requiring assistance completed. IV discontinued, intact, ld1 bleeding controlled, No redness/swelling at site. Administered Medications: 09:33 Drug: NS 0.9% IV 1000 ml IV at 1 bolus Per protocol; 1000 mL bolus Route: IV; Rate: 1 ld1 bolus; Site: right forearm; 09:33 Drug: Famotidine IVP 20 mg IVP once; dilute with 10 mL 0.9% NaCl; give over 2 minutes ld1 Route: IVP; Site: right forearm; 09:33 Drug: Ondansetron IVP 4 mg IVP once; over 2 minutes Route: IVP; Site: right forearm; ld1 09:33 Not Given (Patient Refused): morphineor iv 4 mg IVP once over 4 mins ld1 11:12 Drug: Rocephin IV 1 grams IV at per protocol once; Given slow IV push per pharmacy iw instructions Route: IV; Rate: per protocol; Site: right forearm; Medication: 09:33 VIS not applicable for this client. ld1 Outcome: 12:22 Discharge ordered by . reagan 12:38 Discharged to home ambulatory, ld1 12:38 Condition: stable 12:38 Discharge instructions given to patient, Instructed on discharge instructions, follow up and referral plans. medication usage, Demonstrated understanding of instructions, follow-up care, medications, Prescriptions given X 1, 12:39 Patient left the ED. ld1 Signatures: Dispatcher [employer] EDTN Renan Mendoza MD MD cha Williams, Irene, RN Emilie Liz RN RN ll1 Janice Walton RN RN ld1 Iqra Chung 6 Eloisa Correia 5
[2023-08-23 12:50] VITALS: BP 122/74; TEMP 97.4; O2SAT 100
== END 2023-08-23 12:39 | disposition home or self-care (01) ==
LOC: ER 08:19
DX: N39.0 Urinary tract infection, site not specified (principal); Z33.1 Pregnant state, incidental
CPT/HCPCS: 36415; 76817; 80053; 81001; 81025; 83690; 84702; 85025; 87086; 87088; 96374; 96375; 99284; J0696; J2405; J7030

== ENCOUNTER 2024-04-08 11:39 | Emergency (ER) | payer OTHER, SELFPAY ==
--- OUTSIDE RECORDS SUMMARY | 2024-04-08 11:47 | XMS REPORT | Continuity of Care Document ---
Author Name Unknown Address [address] [facility] [address]. [address] [place] [address] [facility] thconnect Address [address] [facility]. [address] [place] [address] Care Team Providers Care Material Hauler Name Role Phone PCP, PATIENT DOES NOT HAVE A Primary Care Physic velma Unavailable FREDERIC KHALIL Attending Clinician FREDERIC Coleman Attending Clinician Adair langley Doctor Unassigned, [place] Attending Clinician Raphael Mccannb, [facility] Main Attending Clinician Frederic Contreras MD Attending Clinician [phone] Pcp, Patient Does Not Have A Attending Clinician 2, [facility] Attending Clinician UnavailCorine Engle MD Attending Clinician CORINE PAK Attending Clinician Unavailable CORINE PAK Attending Clinician Unavailable 2, [facility] Attending Clinician Unavailable Payers Payer Name Policy Type Policy Number Effective Date Expirati on Date Source [place] [employer] [id number] 2024 00:00:00 Problems Condition Name Condition Details Condition Category Status Onset Date Resolution Date Last Treatment Date Treating Clinician Comments Source 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 Disease Active - 00:00: 00 [facility] Rubella non-immune status, antepartum Rubella non-immune status, antepartum Disease Active 02-18 00:00: 00 [facility] High-risk in second trimester High-risk in second trimester Disease Active 2023-02 00:00: 00 [facility] Limited care in second trimester Limited care in second trimester Disease Active 2023-02 00:00: 00 [facility] Allergies, Adverse Reactions, Alerts Allergy Name Allergy Type Status Severity Reaction(s) Onset Date Inactive Date Treating Clinician Comments Source Loratagion ne Propensi ty to adverse reaction s Active Hives 2023-02 00:00: 00 [facility] LORATADI NE DRUG INGREDI [facility]-02 00:00: 00 [facility] Social History Social Habit Start Date Stop Date Quantity Comments Source ASSERTION 2023-08-10 00:00:00 [facility] Alcoholic beverage intake 2024-04-05 00:00:00 2024-04-05 00:00:00 Ex-drinker (finding) [facility] History of Social function 2024-03-08 00:00:00 2024-03-08 00:00:00 [facility] Tobacco use and exposure 2024-02-05 00:00:00 2024-02-05 00:00:00 Smokeless tobacco non-user [facility] Sex assigned at 1990 00:00:00 1990 00:00:00 [facility] Smoking Status Start Date Stop Date Source Never smoked tobacco [facility] Medications Ordered Medication Name Filled Medication Name Start Date Stop Date Current Medication? Ordering Clinician Indication Dosage Frequency Signature (SIG) Comments Components Source vit,calc76/ iron/folic (PNV 29-1 ORAL) 03-22 14:45: 00 Yes Take by mouth. [facility] vit,calc76/ iron/folic (PNV 29-1 ORAL) 2023-02 14:39: 27 Yes Take by mouth. [facility] pantoprazol e (PROTONIX) 40 mg EC tablet 2023-02 00:00: 00 Yes [id number] 40mg Take 1 tablet by mouth in the morning. [facility] Vital Signs Vital Name Observation Time Observation Value Comments S suyapa Systolic blood pressure 2024-04-05 22:29:00 128 mm[Hg] [facility] Diastolic blood pressure 2024-04-05 22:29:00 68 mm[Hg] [facility] Heart rate 2024-04-05 22:29:00 97 /min [facility] Body temperature 2024-04-05 22:29:00 36.67 Alie [facility] Respiratory rate 2024-04-05 22:29:00 18 /min [facility] Body height 2024-04-05 22:29:00 165.1 cm [facility] Body weight 2024-04-05 22:29:00 107.23 kg [facility] BMI 2024-04-05 22:29:00 39.34 kg/m2 [facility] Systolic blood pressure 2024-03-22 14:07:00 129 mm[Hg] [facility] Diastolic blood pressure 2024-03-22 14:07:00 68 mm[Hg] [facility] Heart rate 2024-03-22 14:07:00 107 /min [facility] Body temperature 2024-03-22 14:07:00 36.11 Alie [facility] Respiratory rate 2024-03-22 14:07:00 18 /min [facility] Body height 2024-03-22 14:07:00 165.1 cm [facility] Body weight 2024-03-22 14:07:00 103.874 kg [facility] BMI 2024-03-22 14:07:00 38.11 kg/m2 [facility] Systolic blood pressure 2024-03-08 22:02:00 132 mm[Hg] [facility] Diastolic blood pressure 2024-03-08 22:02:00 84 mm[Hg] [facility] Heart rate 2024-03-08 22:02:00 96 /min [facility] Body temperature 2024-03-08 22:02:00 36.39 Alie [facility] Respiratory rate 2024-03-08 22:02:00 18 /min [facility] Body height 2024-03-08 22:02:00 165.1 cm [facility] Body weight 2024-03-08 22:02:00 104.327 kg [facility] BMI 2024-03-08 22:02:00 38.27 kg/m2 [facility] Systolic blood pressure 2024-02-19 22:25:00 128 mm[Hg] [facility] Diastolic blood pressure 2024-02-19 22:25:00 88 mm[Hg] [facility] Heart rate 2024-02-19 22:25:00 97 /min [facility] Body temperature 2024-02-19 22:25:00 36.83 Alie [facility] Body height 2024-02-19 22:25:00 165.1 cm [facility] Body weight 2024-02-19 22:25:00 103.42 kg [facility] BMI 2024-02-19 22:25:00 37.94 kg/m2 [facility] Systolic blood pressure 2024-02-05 20:34:00 118 mm[Hg] [facility] Diastolic blood pressure 2024-02-05 20:34:00 71 mm[Hg] [facility] Heart rate 2024-02-05 20:34:00 102 /min [facility] Body temperature 2024-02-05 20:34:00 36.11 Alie [facility] Respiratory rate 2024-02-05 20:34:00 18 /min [facility] Body height 2024-02-05 20:34:00 165.1 cm [facility] Body weight 2024-02-05 20:34:00 101.152 kg [facility] BMI 2024-02-05 20:34:00 37.11 kg/m2 [facility] Procedures Procedure Date / Time Performed Performing Clinician Source DSU PRE-OP 2024-04-05 22:37:19 Doctor Unass igned, [place] [facility] POCT URINALYSIS W/O SPECIFIC GRAVITY 2024-04-05 00:00:00 [facility] POCT URINALYSIS W/O SPECIFIC GRAVITY 2024-03-22 00:00:00 [facility] POCT URINALYSIS W/O SPECIFIC GRAVITY 2024-03-08 00:00:00 [facility] SECOND AND THIRD TRIMESTER ULTRASOUND 2024-02-28 14:47:00 [facility] POCT URINALYSIS W/O SPECIFIC GRAVITY 2024-02-19 00:00:00 [facility] 1 HR GLUCOSE TOLERANCE TEST 2024-02-15 15:32:00 [facility] GLUCOSE FASTING 2024-02-15 14:29:00 [facility] GLUCOSE 1 HOUR POST PRANDIAL 2024-02-05 22:25:00 [facility] CBC WITH DIFF 2024-02-05 22:25:00 [facility] GLYCOSYLATED HEMOGLOBIN (A1C) 2024-02-05 22:25:00 [facility] RUBELLA SCREEN IGG 2024-02-05 22:25:00 [facility] ANTIBODY SCREEN 2024-02-05 22:25:00 [facility] HEPATITIS B SURFACE ANTIGEN 2024-02-05 22:25[facility]TIBODY 2024-02-05 22:25:00 [facility] HB ABO GROUPING 2024-02-05 22:25:00 [facility] ADC OR SAMIA ONLY - RPR 2024-02-05 22:25:00 [facility] HIV 1/2 AG-AB WITH REFLEX 2024-02-05 22:25:00 [facility] POCT TEST 2024-02-05 00:00:00 [facility] POCT URINALYSIS W/O SPECIFIC GRAVITY 2024-02-05 00:00:00 [facility] Encounters Start Date/Time End Date/Time Encounter Type Admission Type Attending [facility] Care Facility Care Department Encounter ID Source 2024-04-12 14:45:00 2024-04-12 14:45:00 Outpatient R HE S, FREDERIC GUILLERMO-ROMARIO S, FREDERIC [facility] [id number] [facility] 2024-04-05 00:00:00 2024-04-06 02:03:34 Orders Only Doctor Unassigned, [place] Doctor Unassigned, [place] [facility] 1.2.840.114 350.1.13.10 4.2.7.2.686 [id number] [facility] 2024-04-05 16:45:00 2024-04-05 17:00:00 Script Coordinator Visit Pob, [facility] Main Moose Georgel Pob, [facility] Main [facility] 1..840.114 350.1.13.10 4.2.7.2.686 [id number] [facility] 2024-04-05 16:45:00 2024-04-05 16:45:00 Outpatient R HE S, FREDERIC GUILLERMO-ROMARIO S, FREDERIC [facility] [id number] [facility] 2024-04-05 16:15:00 2024-04-05 16:44:32 [facility] 1.2.840.114 350.1.13.10 4.2.7.2.686 [id number] [facility] 2024-03-22 08:00:00 2024-03-22 08:19:46 Outpatient R LI-ROMARIO S, FREDERIC LI-ROMARIO S, FREDERIC [facility] [id number] [facility] 2024-03-22 08:00:00 2024-03-22 08:19:46 Routine Visit Li-Romario s, Frederic [facility] 1.2.840.114 350.1.13.10 4.2.7.2.686 [id number] [facility] 2024-03-08 16:00:00 2024-03-08 16:11:48 Routine Visit Li-Romario s, Frederic [facility] 1.2840.114 350.1.13.10 4.2.7.2.686 [id number] [facility] 2024-03-08 16:00:00 2024-03-08 16:11:48 Outpatient R LI-ROMARIO S, FREDERIC IL-ROMARIO S, FREDERIC MIMB [facility] [id number] [facility] 2024-02-26 00:00:00 2024-03-01 15:38:40 Telephone Pcp, Patient Does Not Have A [facility] 1.2840.114 350.1.13.10 4.2.7.2.686 [id number] [facility] 2024-02-28 08:00:00 2024-02-28 08:47:58 Script Coordinator Visit 2, [facility] Room Corine Pak [facility] 1.2840.114 350.1.13.10 4.2.7.2.686 [id number] [facility] 2024-02-28 08:00:00 2024-02-28 08:47:58 Outpatient CORINE SOTO SHANNON [facility] [id number] [facility] 2024-02-19 16:15:00 2024-02-19 16:35:11 Routine Visit Li-Romario s, [facility] 1.2.840.114 350.1.13.10 4.2.7.2.686 [id number] [facility] 2024-02-19 16:15:00 2024-02-19 16:35:11 Outpatient R LI-ROMARIO S, FREDERIC LI-ROMARIO S, FREDERIC [facility] [id number] [facility] 2024-02-15 08:00:00 2024-02-15 08:15:00 Script Coordinator Visit 2, Adc Lab Li-Romario s, Frederic 2, Adc Lab [facility] 1.2.840.114 350.1.13.10 4.2.7.2.686 [id number] [facility] 2024-02-15 08:00:00 2024-02-15 08:00:00 Outpatient R LI-ROMARIO S, FREDERIC LI-ROMARIO S, FREDERIC [facility] [id number] [facility] 2024-02-09 00:00:00 2024-02-09 15:48:40 Telephone Li-Romario s, Frederic [facility] 1.2.840.114 350.1.13.10 4.2.7.2.686 [id number] [facility] 2024-02-05 15:15:00 2024-02-05 15:30:00 Script Coordinator Visit 2, Adc Lab Li-Romario s, Frederic 2, Adc Lab [facility] 1.2.840.114 350.1.13.10 4.2.7.2.686 [id number] [facility] 2024-02-05 14:30:00 2024-02-05 15:04:37 Outpatient R LI-ROMARIO S, FREDERIC LI-ROMARIO S, FREDERIC [facility] [id number] [facility] 2024-02-05 14:30:00 2024-02-05 15:04:37 Initial Visit Guillermo-Romario sRadhaFrederic [facility] 1.2.840.114 350.1.13.10 4.2.7.2.686 [id number] [facility] 2024-02-05 14:30:00 2024-02-05 15:04:37 Outpatient R LI-ROMARIO S, FREDERIC LI-ROMARIO S, FREDERIC [facility] [id number] [facility] Results Test Description Test Time Test Comments Results Resul t Comments Source DSU PRE-OP 2024-04-05 22:37:19 Ordered by an unspecified provider. [facility] w/o Specific [id number] 14:05:00* Test Item Value Reference Range Interpretation Comme nts POCT PH U (test code = 3254) n/a 5-8 POCT U LEUK EST (test code = 3263) n/a Negative - Negative POCT U NIT (test code = 3262) n/a Negative - Negati ve POCT U PROT (test code = 3259) negative Negative - Negat karla POCT U GLU (test code = 3256) normal Negative - Negati ve POCT U KETONE (test code = 3258) n/a Negative - Neg ative POCT U BLD (test code = 3257) n/a Negative - Negati ve [facility] w/o Specific [id number] 22:00:00* Test Item Value Reference Range Interpretation Comme nts POCT PH U (test code = 3254) n/a 5-8 POCT U LEUK EST (test code = 3263) n/a Negative - Negative POCT U NIT (test code = 3262) n/a Negative - Negati ve POCT U PROT (test code = 3259) negative Negative - Negat karla POCT U GLU (test code = 3256) normal Negative - Negati ve POCT U KETONE (test code = 3258) n/a Negative - Neg ative POCT U BLD (test code = 3257) n/a Negative - Negati ve [facility] Ur[facility] w/o Specific [id number] 22:23:00* Test Item Value Reference Range Interpretation Comme nts POCT PH U (test code = 3254) n/a 5-8 POCT U LEUK EST (test code = 3263) n/a Negative - Negative POCT U NIT (test code = 3262) n/a Negative - Negati ve POCT U PROT (test code = 3259) negative Negative - Negat karla POCT U GLU (test code = 3256) negative Negative - Negati ve POCT U KETONE (test code = 3258) n/a Negative - Neg ative POCT U BLD (test code = 3257) n/a Negative - Negati ve [facility] Screen [id number] 16:39:40* Test Item Value Reference Range Interpretation Comme [facility] Rubella screen IgG (test code = 7054499153) Negative Negative KERLINE (test code = KERLINE) Positive - Indicat es the patient was exposed to Rubella through infection or vaccination.Negative - Indicates the patient could be susceptible to Rubella infection.Equivocal - A second specimen should be sent. [facility] Antibody [id number] 16:39:40* Test Item Value Reference Range Interpretation Comme [facility] VZV IgG antibody (test code = 80647-9) Negative Negative KERLINE (test code = KERLINE) Positive - Indicat es the patient was exposed to VZV through infection or vaccination.Negative - Indicates the patient could be susceptible to VZV infection.Equivocal - A second specimen should be sent for testing. [facility] [id number] 09:36:46* Test Item Value Reference Range Interpretation Comme nts HCV Ab (test code = 81978-6) Negative HCV Semi-Quantitative (test code = 19038-7) 0.01 [facility]atitis B Surface [id number] 09:19:23 * Test Item Value Reference Range Interpretation Comme nts HBsAg Semi-Quantitative (sirisha t code = 5195-3) 0.09 Negative [facility]AD or Samia Only - [id number] 08:43:57* Test Item Value Reference Range Interpretation Comme nts RPR (Qualitative) (test code = 72736-6) Nonreactive Nonreactive Lab Interpretation (test cod e = 14683-6) Normal [facility] 1/2 Ag-Ab with [id number] 00:46:58* Test Item Value Reference Range Interpretation Comme nts HIV Semi-quantitative (test code = 83113-6) 0.12 Negative KERLINE (test code = KERLINE) Non-reactive for HIV-1 antigen and HIV-1/HIV-2 antibodies. ?No laboratory evidence of HIV infection. ?Repeat in 2-4 weeks if acute HIV infection is suspected. [facility]cosylated Hemoglobin (A1C)2024-02-06 00:35:35* Test Item Value Reference Range Interpretation Comme [facility] HGB A1C (test code = 4548-4) 4.5 % 4.0-5.7 KERLINE (test code = KERLINE) Reference RangesNormal: <5.7%Prediabetes: 5.7 - 6.4%Diabetes: > 6.5% Lab Interpretation (test code = 63752-3) Normal [facility]ucose 1 Hour Post [id number] 23:52:32* Test Item Value Reference Range Interpretation Comme nts GLUC 1 HR (test code = 7787891924) 145 mg/dL 120-170 Lab Interpretation (test cod e = 30546-3) Normal [facility]Cb with [id number] 22:40:24* Test Item Value Reference Range Interpretation Comme nts WBC (test code = 6690-2) 9.38 4.30-11.10 RBC (test code = 789-8) 3.47 3.93-5.25 L HGB (test code = 718-7) 10.4 g/dL 11.6-15.0 L HCT (test code = 4544-3) 30.9 % 35.7-45.2 L MCV (test code = 787-2) 89.0 fL 80.6-95.5 MCH (test code = 785-6) 30.0 pg 25.9-32.8 MCHC (test code = 786-4) 33.7 g/dL 31.6-35.1 RDW-SD (test code = 04961-2) 41.8 fL 39.0-49.9 RDW-CV (test code = 788-0) 12.9 % 12.0-15.5 PLT (test code = 777-3) 252 166-358 MPV (test code = 73281-6) 9.6 fL 9.5-12.9 NRBC/100 WBC (test code = 9454959370) 0.0 0.0-10.0 NRBC x10^3 (test code = 7369404376) See_Comment [Automated messa ge] The system which generated this result transmitted reference range: 10*3/?L. The reference range was not used to interpret this result as normal/abnormal. GRAN MAT (NEUT) % (test code = 770-8) 75.4 % IMM GRAN % (test code = 4770138530) 0.70 % LYMPH % (test code = 736-9) 16.0 % MONO % (test code = 5905-5) 6.0 % EOS % (test code = 713-8) 1.4 % BASO % (test code = 706-2) 0.5 % GRAN MAT x10^3(ANC) (test code = 1041088978) 7.07 10*3/uL 1.88-7.09 IMM GRAN x10^3 (test code = 9568952054) 0.07 10*3/uL 0.00-0.06 H LYMPH x10^3 (test code = 731-0) 1.50 10*3/uL 1.32-3.29 MONO x10^3 (test code = 742-7) 0.56 10*3/uL 0.33-0.92 EOS x10^3 (test code = 711-2) 0.13 10*3/uL 0.03-0.39 BASO x10^3 (test code = 704-7) 0.05 10*3/uL 0.01-0.07 Lab Interpretation (test code = 96304-1) Abnormal [facility]Prenatal Workup, Blood [id number] 22:38:00 * Test Item Value Reference Range Interpretation Comme nts ABO & RH (test code = 20) B POSITIVE IAT (test code = 1185) Negative [facility] [id number] 21:10:00* Test Item Value Reference Range Interpretation Comme nts POCT PREG (test code = 1605) Positive On board controls acceptable with C Line (test code = 3574) Yes POCT PREG LOT # (test code = 3575) POCT PREG TEST DATE ( test code = 3576) [facility] Urinalysis w/o Specific [id number] 21:10:00* Test Item Value Reference Range Interpretation Comme nts POCT PH U (test code = 3254) n/a 5-8 POCT U LEUK EST (test code = 3263) n/a Negative - N egative POCT U NIT (test code = 3262) n/a Negative - Negati ve POCT U PROT (test code = 3259) neg Negative - Negat karla POCT U GLU (test code = 3256) neg Negative - Negati ve POCT U KETONE (test code = 3258) n/a Negative - Neg ative POCT U BLD (test code = 3257) n/a Negative - Negati ve [facility] Notes Date/Time Note Provider Source 2024-04-05 16:45:00 Images from the original note were not included. Venipuncture collection performed by clean technique on the left forearm(s). Total of 1 attempts were made. Slight pressure and a bandage/dressing were applied to the site(s). The patient experienced no complications. The following specimens were processed according to instructions and sent to [facility] laboratories per lab order on 04/05/2024 : LT BLUE SST RED 1 LAV PPT DK GREEN (LiHep) DK GREEN (SodH) LOCK[place] DK BLUE (K2) DK BLUE (S) ACD Blood Culture NIPT/NTD [facility] 2024-04-05 16:15:00 Age: [age] year old GA: 36w1d ASSESSMENT: Tommie Beatty is a 33 year old at 36w1d who presents for routine visit. Patient Active Problem List Diagnosis High-risk in second trimester Limited care in second trimester ASCUS with positive high risk HPV cervical Rubella non-immune status, antepartum PLAN 1. High-risk in third trimester --02/27/24: normal anatomy US, 28%ile - Group B Streptococcus By PCR - Cbc with Diff; Future - Gc & Chlamydia Amplified Assay - POCT Urinalysis w/o Specific Floyd 2. Limited care in second trimester 3. Rubella non-immune status, antepartum --Plan MMR pp 4. ASCUS with positive high risk HPV cervical --Late to care, plan colposcopy pp 5. 36 weeks gestation of - Group B Streptococcus By PCR - Cbc with Diff; Future - Gc & Chlamydia Amplified Assay [facility] 2024-03-22 08:00:00 Age: [age] year old GA: 34w1d ASSESSMENT: Tommie Beatty is a 33 year old at 34w1d who presents for routine visit. Patient Active Problem List Diagnosis High-risk in second trimester Limited care in second trimester ASCUS with positive high risk HPV cervical Rubella non-immune status, antepartum PLAN 1. High-risk in third trimester --02/27/24: Normal anatomy, 28%ile 2. Limited care in second trimester --labs 3. Rubella non-immune status, antepartum --Plan MMR pp 4. ASCUS with positive high risk HPV cervical --Late to care, Plan colposcopy pp 5. 34 weeks gestation of --Declines Epidural --Desires spont labor - POCT Urinalysis w/o Specific Floyd [facility] 2024-03-08 16:00:00 Age: [age] year old GA: 32w1d ASSESSMENT: Tommie Beatty is a 33 year old at 32w1d who presents for routine visit. Patient Active Problem List Diagnosis High-risk in second trimester Limited care in second trimester ASCUS with positive high risk HPV cervical Rubella non-immune status, antepartum PLAN 1. High-risk in third trimester --02/27/24: Normal anatomy, 28%ile. 2. Limited care in second trimester --;labs done 3. Rubella non-immune status, antepartum --Plan MMR pp 4. ASCUS with positive high risk HPV cervical --Late to care, jorge colposcopy pp 5. 32 weeks gestation of - POCT Urinalysis w/o Specific Floyd --Reviewed with patient FAC -- labor warnings reviewed --All questions answered [facility] 2024-03-01 15:38:07 Patient seen for ultrasound on 02/28/24. Noemy Owens 03/01/2024 3:[address] Owens [facility] 2024-02-28 08:00:00 Reviewed recent ultrasound results, show: Normal anatomy [facility] 2024-02-26 08:01:50 Tommie Beatty is a 33 year old female Pt is calling stating she was told her appt for her US was today but the schedule says Monday. Pt wants to know if there is anything available for today. Pt is already in [place]. Please advise RD Woodall [facility] 2024-02-19 16:15:00 Age: [age] year old GA: 29w4d ASSESSMENT: Tommie Beatty is a 33 year old at 29w4d who presents for routine visit. Patient Active Problem List Diagnosis High-risk in second trimester Limited care in second trimester ASCUS with positive high risk HPV cervical PLAN 1. High-risk in third trimester --B+, RNI, elevated 1 hr gtt but normal 3 hr 2. Limited care in second trimester --Anatomy US on 02/26/24 3. ASCUS with positive high risk HPV cervical --late to care so plan colposcopy 4. 29 weeks gestation of - POCT Urinalysis w/o Specific [facility] 2024-02-15 08:00:00 Images from the original note were not included. Loaded pt w 100gm orange glucola, no issues. Draw time: 0932, 1032, 1132 Venipuncture collection performed by clean technique on the right anticubitus. Total of 1 attempts were made. Slight pressure and a bandage/dressing were applied to the site(s). The patient experienced no complications. The following specimens were processed according to instructions and sent to [facility] laboratories per lab order on 02/15/2024 : LT BLUE SST 1 RED LAV PPT DK GREEN (LiHep) DK GREEN (SodH) LOCKWOOD DK BLUE (K2) DK BLUE (S) ACD Blood Culture NIPT/NTD [facility] 2024-02-15 08:00:00 Images from the original note were not included. Venipuncture collection performed by clean technique on the right anticubitus. Total of 1 attempts were made. Slight pressure and a bandage/dressing were applied to the site(s). The patient experienced no complications. The following specimens were processed according to instructions and sent to [facility] laboratories per lab order on 02/15/2024 : LT BLUE SST 1 RED LAV PPT DK GREEN (LiHep) DK GREEN (SodH) LOCKWOOD DK BLUE (K2) DK BLUE (S) ACD Blood Culture NIPT/NTD [facility] 2024-02-15 08:00:00 Images from the original note were not included. Venipuncture collection performed by clean technique on the left anticubitus. Total of 1 attempts were made. Slight pressure and a bandage/dressing were applied to the site(s). The patient experienced no complications. The following specimens were processed according to instructions and sent to [facility] laboratories per lab order on 02/15/2024 : LT BLUE SST 1 RED LAV PPT DK GREEN (LiHep) DK GREEN (SodH) LOCKWOOD DK BLUE (K2) DK BLUE (S) ACD Blood Culture NIPT/NTD [employer] Zhanna Alvarez [facility] 2024-02-15 08:00:00 Images from the original note were not included. Venipuncture collection performed by clean technique on the right anticubitus. Total of 1 attempts were made. Slight pressure and a bandage/dressing were applied to the site(s). The patient experienced no complications. The following specimens were processed according to instructions and sent to [facility] laboratories per lab order on 02/15/2024 : LT BLUE SST 1 RED LAV PPT DK GREEN (LiHep) DK GREEN (SodH) LOCKWOOD DK BLUE (K2) DK BLUE (S) ACD Blood Culture NIPT/NTD [employer] [facility] 2024-02-09 15:45:21 Name and verified, pt states he went and bought iron. She just wanted to confirm she bought the correct one. Pt bought one 325 mg(65mg). Advise pt she did indeed buy the correct one and to take with Vit C or a glass of orange juice 30 minutes before a meal. Pt verbalized understanding. Crystal Smith RN 02/09/2024 3:48 PM [employer] Crystal Smith RN [facility] 2024-02-09 15:34:28 Pt calling and would like to speak to a nurse regarding the iron medication, no further information were given . The patient is calling and would like to speak with a nurse regarding the iron medication. No further information was provided. [employer] Beckie Milner [facility] 2024-02-05 15:15:00 Summary: 50 GTT @ 1614 50 Glucola was given to pt @ 1512. No issues. Pt finished @ 1514 Draw Time @ 1614. [employer] Tanisha Mendez [facility] 2024-02-05 15:15:00 Images from the original note were not included. Pt gave urine upstairs during appointment. Venipuncture collection performed by clean technique on the right forearm(s) and left hand. Total of 2 attempts were made. Slight pressure and a bandage/dressing were applied to the site(s). The patient experienced no complications. The following specimens were processed according to instructions and sent to [facility] laboratories per lab order on 02/05/2024: LT BLUE SST 4 RED 1 LAV 3 PPT DK GREEN (LiHep) DK GREEN (SodH) LOCKWOOD DK BLUE (K2) DK BLUE (S) ACD Blood Culture NIPT/NTD [facility] 2024-02-05 15:15:00 OB labs reviewed: Please let pt know that her blood counts show mild anemia. Recommend taking daily iron along with her vitamin. Elevated 1 hr glucose testing, will need 3 hour glucose test. Will need to be fasting for 8 hours for that test. If abnormal could show gestational diabetes. Blood type: B+ [facility] 2024-02-05 15:15:00 Blood STI testing is negative. [facility] 2024-02-05 15:15:00 Rubella/Varicella Non Immune [facility] 2024-02-05 15:15:00 Addended by: CRYSTAL SMITH on: 02/08/2024 12:17 PM Modules accepted: Orders [facility]
[2024-04-08] MEDS ORDERED: LIDOCAINE VISCOUS 2% 10ML ORAL SOLN ONE (12:02)
[2024-04-08 12:32] LABS: Influenza A Ag Negative; Influenza B Ag Negative; SARS-CoV-2 Antigen Rapid Res Negative (Negative)
--- NOTE | 2024-04-08 13:13 | EDPHYS ---
Physician Documentation [facility] Name: Belle Boston Age: 33 yrs Sex: Female : 1990 Arrival Date: 04/08/2024 Time: 11:39 Bed 12 Private MD: Rae Khalil ED Physician Stanley Guy HPI: 04/08 11:56 This 33 yrs old Female presents to ER via Ambulatory with complaints of ec2 Sneezing, Congestion. 12:24 Patient arrives today for upper respiratory symptoms. Patient is having cough, ec2 congestion, rhinorrhea, sore throat. No vomiting, no diarrhea. Patient has for along in her and is scheduled to be induced in several days. Denies any abdominal pain or vaginal bleeding or complications.. Historical: - Allergies: 11:48 Claritin; aa5 - PMHx: 11:48 None; aa5 - PSHx: 11:48 Cholecystectomy; aa5 - Immunization history:: Adult Immunizations unknown. - Infectious Disease History:: Denies. - Social history:: Smoking status: Patient denies any tobacco usage or history of. ROS: 13:13 Constitutional: as per hpi ec2 Exam: 12:23 Constitutional: GEN: NAD Head: atraumatic Eyes: EOMI Ears: External ears are ec2 normal. CV: tachycardia LUNGS: no respiratory distress ABD: non-distended SKIN: no evidence of rashes MSK: no evidence of trauma Vital Signs: 11:48 BP 126 / 56; Pulse 111; Resp 22 S; Temp 97.5(TE); Pulse Ox 99% on R/A; Weight 104.33 kg aa5 (R); Height 5 ft. 5 in. (R); 13:27 BP 121 / 81; Pulse 91; Resp 18 S; Pulse Ox 99% on R/A; kc6 11:48 Body Mass Index 38.27 (104.33 kg, 165.1 cm) aa5 MDM: 11:48 Medical Screening Exam initiated ec2 12:23 Data reviewed: vital signs, nurses notes. ED course: Patient arrives today for upper ec2 respiratory symptoms. Examination lymphocyte tachycardia. Will give the patient with lidocaine for her sore throat. Suspect viral infection.. 12:53 ED course: Viral swab negative. Strep swab negative.. ec2 04/08 11:55 Order name: COVID-19 Ag + Flu A+B Ag; Complete Time: 12:53 ec2 04/08 11:55 Order name: Group A Streptococcus Rapid; Complete Time: 12:53 ec2 04/08 12:29 Order name: Throat Culture EDMS Administered Medications: 12:05 Not Given (Patient Refused): viscous lidocaineliquid (4 %) 10 ml Mucous Membrane once aa5 Disposition Summary: 04/08/24 13:12 Discharge Ordered Notes: Location: Home ec2 Condition: Stable ec2 Diagnosis - Acute pharyngitis, unspecified ec2 Followup: ec2 - With: Private Physician - When: - Reason: Recheck today's complaints Discharge Instructions: - Discharge Summary Sheet ec2 - Pharyngitis ec2 Forms: - Medication Reconciliation Form ec2 - Antibiotic Education ec2 - Prescription Opioid Use ec2 - Patient Portal Instructions ec2 - Leadership Thank You Letter ec2 Signatures: Dispatcher [employer] Bernie Blankenship RN RN aa5 Stanley Guy MD MD ec2
--- NOTE | 2024-04-08 13:13 | ER ---
Nurse's Notes [facility] Name: Belle Boston Age: 33 yrs Sex: Female : 1990 Arrival Date: 04/08/2024 Time: 11:39 Bed 12 Private MD: Rae Khalil Diagnosis: Acute pharyngitis, unspecified Presentation: 04/08 11:48 Chief complaint: Patient states: cough, congestion, sore throat that began 2 days ago. aa5 Reports being 36 weeks . 11:48 Method Of Arrival: Ambulatory aa5 11:48 Coronavirus screen: congestion, cough unrelated to allergies. Ebola Screen: Patient aa5 denies travel to an Ebola-affected area in the 21 days before illness onset. Initial Sepsis Screen: Does the patient meet any 2 criteria? HR > 90 bpm. Does the patient have a suspected source of infection? No. Patient's initial sepsis screen is negative. Risk Assessment: Do you want to hurt yourself or someone else? Patient reports no desire to harm self or others. Onset of symptoms was March 2024. 11:48 Acuity: GUTIERREZ 4 aa5 Historical: - Allergies: 11:48 Claritin; aa5 - PMHx: 11:48 None; aa5 - PSHx: 11:48 Cholecystectomy; aa5 - Immunization history:: Adult Immunizations unknown. - Infectious Disease History:: Denies. - Social history:: Smoking status: Patient denies any tobacco usage or history of. Screenin:28 [facility] ED Fall Risk Assessment (Adult) History of falling in the last 3 months, kc6 including since admission No falls in past 3 months (0 pts) Confusion or Disorientation No (0 pts) Intoxicated or Sedated No (0 pts) Impaired Gait No (0 pts) Mobility Assist Device Used No (0 pt) Altered Elimination No (0 pt) Score/Fall Risk Level 0 - 2 = Low Risk Oriented to surroundings, Maintained a safe environment, Educated pt \T\ family on fall prevention, incl call for assistance when getting out of bed. Abuse screen: Denies threats or abuse. Denies injuries from another. Nutritional screening: No deficits noted. Tuberculosis screening: No symptoms or risk factors identified. Assessment: 11:50 General: Appears uncomfortable, Behavior is calm, cooperative, Reports being 36 weeks aa5 . Pain: Complains of pain in sore throat. Neuro: Level of Consciousness is awake, alert, obeys commands, Oriented to person, place, time, situation. Cardiovascular: Heart tones S1 S2 present Rhythm is regular. Respiratory: Airway is patent Respiratory effort is even, unlabored, Respiratory pattern is regular, symmetrical. GI: No signs and/or symptoms were reported involving the gastrointestinal system. : No signs and/or symptoms were reported regarding the genitourinary system. EENT: Reports nasal congestion nasal discharge sore throat . Derm: Skin is pink, warm \T\ dry. Musculoskeletal: Range of motion: intact in all extremities. Vital Signs: 11:48 BP 126 / 56; Pulse 111; Resp 22 S; Temp 97.5(TE); Pulse Ox 99% on R/A; Weight 104.33 kg aa5 (R); Height 5 ft. 5 in. (R); 13:27 BP 121 / 81; Pulse 91; Resp 18 S; Pulse Ox 99% on R/A; kc6 11:48 Body Mass Index 38.27 (104.33 kg, 165.1 cm) aa5 ED Course: 11:41 Patient arrived in ED. as 11:41 Stanley Guy MD is Attending Physician. ec2 11:43 Rae Khalil is Private Physician. as 11:48 Arm band placed on. aa5 11:51 Triage completed. aa5 11:56 Bernie Myers, RN is Primary Nurse. aa5 13:28 Patient has correct armband on for positive identification. Bed in low position. Call kc6 light in reach. Side rails up X 1. Adult w/ patient. Pulse ox on. NIBP on. Door closed. Noise minimized. Lights dimmed. Pillow given. 13:28 Patient maintains SpO2 saturation greater than 95% on room air. kc6 13:28 No provider procedures requiring assistance completed. Patient did not have IV access kc6 during this emergency room visit. Administered Medications: 12:05 Not Given (Patient Refused): viscous lidocaineliquid (4 %) 10 ml Mucous Membrane once aa5 Medication: 13:28 VIS not applicable for this client. kc6 Outcome: 13:12 Discharge ordered by . ec2 13:28 Discharged to home ambulatory, with significant other, kc6 13:28 Condition: good 13:28 Discharge instructions given to patient, significant other, Instructed on discharge instructions, follow up and referral plans. Demonstrated understanding of instructions, follow-up care, 13:29 Patient left the ED. kc6 Signatures: Mary Cuello Audri, RN RN aa5 Anni Wren RN RN kc6 Stanley Guy MD MD ec2
[2024-04-08 13:33] VITALS: TEMP 97.5; O2SAT 99
[2024-04-08 13:35] VITALS: BP 121/81
== END 2024-04-08 13:29 | disposition home or self-care (01) ==
LOC: ER 11:39
DX: O26.893 Other specified pregnancy related conditions, third trimester (principal); J02.9 Acute pharyngitis, unspecified; Z3A.36 36 weeks gestation of pregnancy; Z11.52 Encounter for screening for COVID-19
CPT/HCPCS: 36415; 87070; 87428; 99283